=== PATIENT | male | born 1965 | race Caucasian/White ===

== ENCOUNTER 2021-01-04 07:16 | Inpatient (IN) ==
[2021-01-04] MEDS ORDERED: ASPIRIN 325 MG TABLET PO STA (07:33)
[2021-01-04] MEDS ORDERED: NITROGLYCERIN SL 0.4 MG TABLET SL PRN (07:48)
[2021-01-04 07:59] LABS: Basophils % 0.3 % (0.0-0.8); Hematocrit 43.8 VOL% (42.0-52.0); Hemoglobin 14.1 GM/DL (14.0-18.0); Immature Granulocytes Absolute 0.21 #; Lymphocytes # 1.4 10*3/uL (1.4-4.0); Lymphocytes % 13.5 % (21.2-54.2); Mean Corpuscular HGB Conc 32.2 GM/DL (32-36); Mean Corpuscular Volume 96.5 FL (87-102); Monocytes % 6.8 % (1.7-12.7); Neutrophils % 77.4 % (38.7-73.9); Platelet Count 258 T/CUMM (130-400); Red Blood Count 4.54 MC/CUMM (3.8-5.5); White Blood Count 10.5 T/CUMM (4-12)
[2021-01-04 08:11] LABS: Calcium 8.3 MG/DL (8.5-10.1); INR 1.7; Osmolality,Calculated 267.8 MOS/KG (273-304); PT Patient Result 18.6 SECS (10.5-12.0); Partial Thromboplastin Time 32.7 SECS (23.9-33.8); Potassium 4.1 MMOL/L (3.5-5.1)
[2021-01-04] MEDS ORDERED: FUROSEMIDE 40 MG/4 ML VIAL IV STA (10:06)
[2021-01-04] MEDS ORDERED: DEXTROSE 50% 25 GM/50 ML VIAL IV PRN (13:46)
[2021-01-04] MEDS ORDERED: ONDANSETRON 4 MG/2 ML VIAL IV PRN (13:46)
[2021-01-04] MEDS ORDERED: GLUCAGON 1 MG VIAL IM PRN (13:46)
[2021-01-04 14:40] LABS: Albumin 2.5 G/DL (3.4-5.0); Bilirubin,Direct 2.79 MG/DL (0.0-0.20); Bilirubin,Indirect 0.9 MG/DL (0.0-1.0); Bilirubin,Total 3.7 MG/DL (0.2-1.0); Total Protein 7.4 G/DL (6.4-8.2)
[2021-01-04 14:46] LABS: Thyroid Stimulating Hormone 3.03 uIU/ml (0.358-3.74)
[2021-01-04] MEDS ORDERED: cefTRIAXone 1,000 MG in SODIUM CHLORIDE 0.9% 100 ML IV SCH (15:00)
[2021-01-04 15:27] LABS: Barbiturates Screen,Urine Negative (Negative); Benzodiazepines Screen,Urine Negative (Negative); Cannabinoid Screen,Urine Negative (Negative); Opiate Screen,Urine Positive (Negative); Phencyclidine Screen,Urine Negative (Negative)
[2021-01-04] MEDS ORDERED: PNEUMOCOCCAL VACCINE (13 VALENT) 0.5 ML SYRINGE IM ONE (17:17)
[2021-01-04] MEDS: ENOXAPARIN 60 MG/0.6 ML SYRINGE SUBCUT SCH (17:52)
[2021-01-04] MEDS: ALBUTEROL/IPRATROPIUM 3 ML NEB RESP TX SCH (19:05)
[2021-01-04] MEDS: FUROSEMIDE 40 MG/4 ML VIAL IV SCH (20:36)
[2021-01-04] MEDS: MORPHINE 4 MG/1 ML VIAL IV PRN (22:06)
[2021-01-05] MEDS: ALBUTEROL/IPRATROPIUM 3 ML NEB RESP TX SCH ×4 (01:47→20:44)
[2021-01-05] MEDS: MORPHINE 4 MG/1 ML VIAL IV PRN ×4 (02:32→21:09)
[2021-01-05 04:36] LABS: Basophils % 0.2 % (0.0-0.8); Eosinophils % 0.2 % (0.00-10.9); Hematocrit 39.2 VOL% (42.0-52.0); Hemoglobin 13.2 GM/DL (14.0-18.0); Immature Granulocytes % 1.9 %; Immature Granulocytes Absolute 0.23 #; Lymphocytes % 8.1 % (21.2-54.2); Mean Corpuscular HGB Conc 33.7 GM/DL (32-36); Mean Corpuscular Volume 91.2 FL (87-102); Mean Platelet Volume 9.4 FL (9.6-12.0); Monocytes % 6.8 % (1.7-12.7); Neutrophils % 82.8 % (38.7-73.9); Platelet Count 271 T/CUMM (130-400); Red Cell Distribution Width 18.6 % (9.3-17.3); White Blood Count 12.2 T/CUMM (4-12)
[2021-01-05 05:02] LABS: Albumin 1.8 G/DL (3.4-5.0); Bilirubin,Total 2.1 MG/DL (0.2-1.0); Calcium 7.4 MG/DL (8.5-10.1); Osmolality,Calculated 273.2 MOS/KG (273-304); Potassium 2.9 MMOL/L (3.5-5.1); Risk Ratio 5.67; VLDL Cholesterol 13.8 MG/DL
[2021-01-05] MEDS: ENOXAPARIN 60 MG/0.6 ML SYRINGE SUBCUT SCH ×2 (05:34→17:15)
[2021-01-05] MEDS ORDERED: MAGNESIUM SULF RIDER 4 GM/100 ML PREMIX IV PRN (07:26)
[2021-01-05] MEDS ORDERED: MAGNESIUM SULF RIDER 2 GM/50 ML PREMIX IV PRN (07:26)
[2021-01-05] MEDS ORDERED: ENOXAPARIN 40 MG/0.4 ML SYRINGE SUBCUT SCH (09:00)
[2021-01-05] MEDS: LEVOFLOXACIN INJ 750 MG/150 ML PREMIX IV SCH (09:10)
[2021-01-05] MEDS: PANTOPRAZOLE 40 MG TABLET PO SCH (09:10)
[2021-01-05] MEDS: FUROSEMIDE 40 MG/4 ML VIAL IV SCH (09:10)
[2021-01-05] MEDS: POTASSIUM CHLORIDE 20 MEQ TABLET PO PRN ×4 (09:10→16:40)
[2021-01-05] MEDS: LOSARTAN 25 MG TABLET PO SCH (15:55)
[2021-01-05] MEDS: METOPROLOL TARTRATE 25 MG TABLET PO SCH (20:37)
[2021-01-06] MEDS: ALBUTEROL/IPRATROPIUM 3 ML NEB RESP TX SCH ×4 (01:43→18:35)
[2021-01-06] MEDS: ENOXAPARIN 60 MG/0.6 ML SYRINGE SUBCUT SCH ×2 (05:09→17:00)
[2021-01-06 05:17] LABS: Basophils % 0.3 % (0.0-0.8); Eosinophils % 0.3 % (0.00-10.9); Hematocrit 38.6 VOL% (42.0-52.0); Hemoglobin 12.5 GM/DL (14.0-18.0); Immature Granulocytes % 1.3 %; Immature Granulocytes Absolute 0.16 #; Lymphocytes % 8.2 % (21.2-54.2); Mean Corpuscular HGB Conc 32.4 GM/DL (32-36); Mean Platelet Volume 9.5 FL (9.6-12.0); Monocytes % 7.6 % (1.7-12.7); Neutrophils % 82.3 % (38.7-73.9); Platelet Count 271 T/CUMM (130-400); Red Blood Count 4.15 MC/CUMM (3.8-5.5); Red Cell Distribution Width 18.7 % (9.3-17.3)
[2021-01-06 05:39] LABS: Albumin 1.7 G/DL (3.4-5.0); Bilirubin,Total 1.4 MG/DL (0.2-1.0); Calcium 7.6 MG/DL (8.5-10.1); Osmolality,Calculated 267.5 MOS/KG (273-304); Potassium 3.6 MMOL/L (3.5-5.1); Total Protein 5.7 G/DL (6.4-8.2)
[2021-01-06] MEDS: FUROSEMIDE 40 MG TABLET PO SCH (09:35)
[2021-01-06] MEDS: LOSARTAN 25 MG TABLET PO SCH (09:35)
[2021-01-06] MEDS: METOPROLOL TARTRATE 25 MG TABLET PO SCH ×2 (09:35→20:00)
[2021-01-06] MEDS: PANTOPRAZOLE 40 MG TABLET PO SCH (09:36)
[2021-01-06] MEDS: LEVOFLOXACIN INJ 750 MG/150 ML PREMIX IV SCH (09:36)
[2021-01-06] MEDS: MORPHINE 4 MG/1 ML VIAL IV PRN ×2 (10:19→19:36)
[2021-01-06] MEDS: ALUMINUM/MAGNES/SIMETH MAX STR 30 ML UDCUP PO PRN (22:12)
[2021-01-07] MEDS: ALBUTEROL/IPRATROPIUM 3 ML NEB RESP TX SCH ×4 (01:03→19:23)
[2021-01-07] MEDS: ENOXAPARIN 60 MG/0.6 ML SYRINGE SUBCUT SCH ×2 (05:05→18:11)
[2021-01-07] MEDS: LOSARTAN 25 MG TABLET PO SCH (08:43)
[2021-01-07] MEDS: METOPROLOL TARTRATE 50 MG TABLET PO SCH ×2 (08:43→21:46)
[2021-01-07] MEDS: FUROSEMIDE 40 MG TABLET PO SCH (08:44)
[2021-01-07] MEDS: PANTOPRAZOLE 40 MG TABLET PO SCH (08:44)
[2021-01-07] MEDS: LEVOFLOXACIN INJ 750 MG/150 ML PREMIX IV SCH (08:44)
[2021-01-07] MEDS: MORPHINE 4 MG/1 ML VIAL IV PRN (23:11)
[2021-01-08] MEDS: ALBUTEROL/IPRATROPIUM 3 ML NEB RESP TX SCH ×4 (02:08→20:07)
[2021-01-08 04:41] LABS: Basophils % 0.2 % (0.0-0.8); Eosinophils # 0.1 10*3/uL (0.0-0.87); Eosinophils % 0.4 % (0.00-10.9); Hematocrit 35.5 VOL% (42.0-52.0); Hemoglobin 11.4 GM/DL (14.0-18.0); Immature Granulocytes % 1.8 %; Immature Granulocytes Absolute 0.24 #; Lymphocytes # 1.5 10*3/uL (1.4-4.0); Lymphocytes % 10.8 % (21.2-54.2); Mean Corpuscular HGB Conc 32.1 GM/DL (32-36); Mean Corpuscular Volume 95.2 FL (87-102); Mean Platelet Volume 9.4 FL (9.6-12.0); Monocytes % 7.5 % (1.7-12.7); Neutrophils % 79.3 % (38.7-73.9); Platelet Count 307 T/CUMM (130-400); Red Blood Count 3.73 MC/CUMM (3.8-5.5); Red Cell Distribution Width 18.3 % (9.3-17.3); White Blood Count 13.6 T/CUMM (4-12)
[2021-01-08 05:10] LABS: Calcium 7.4 MG/DL (8.5-10.1); Osmolality,Calculated 268.4 MOS/KG (273-304); Potassium 3.3 MMOL/L (3.5-5.1)
[2021-01-08] MEDS: ENOXAPARIN 60 MG/0.6 ML SYRINGE SUBCUT SCH (05:42)
[2021-01-08] MEDS: PANTOPRAZOLE 40 MG TABLET PO SCH (09:13)
[2021-01-08] MEDS: LEVOFLOXACIN INJ 750 MG/150 ML PREMIX IV SCH (09:13)
[2021-01-08] MEDS: METOPROLOL TARTRATE 50 MG TABLET PO SCH ×2 (09:13→21:32)
[2021-01-08] MEDS: LOSARTAN 25 MG TABLET PO SCH (09:13)
[2021-01-08] MEDS: FUROSEMIDE 40 MG TABLET PO SCH (09:13)
[2021-01-08] MEDS: POTASSIUM CHLORIDE 10 MEQ TABLET PO SCH ×2 (09:15→21:32)
[2021-01-08] MEDS: MORPHINE 4 MG/1 ML VIAL IV PRN (09:19)
[2021-01-08 13:11] LABS: INR 1.2; PT Patient Result 12.8 SECS (10.5-12.0)
[2021-01-08] MEDS: ALUMINUM/MAGNES/SIMETH MAX STR 30 ML UDCUP PO PRN (21:32)
[2021-01-09] MEDS: ALBUTEROL/IPRATROPIUM 3 ML NEB RESP TX SCH (00:24)
[2021-01-09 07:36] LABS: Basophils % 0.2 % (0.0-0.8); Eosinophils # 0.1 10*3/uL (0.0-0.87); Eosinophils % 0.4 % (0.00-10.9); Hematocrit 39.2 VOL% (42.0-52.0); Hemoglobin 12.3 GM/DL (14.0-18.0); Immature Granulocytes % 3.4 %; Immature Granulocytes Absolute 0.45 #; Lymphocytes # 1.1 10*3/uL (1.4-4.0); Lymphocytes % 8.6 % (21.2-54.2); Mean Corpuscular HGB Conc 31.4 GM/DL (32-36); Mean Corpuscular Volume 95.6 FL (87-102); Mean Platelet Volume 9.1 FL (9.6-12.0); Monocytes % 8.3 % (1.7-12.7); Neutrophils % 79.1 % (38.7-73.9); Platelet Count 348 T/CUMM (130-400); Red Cell Distribution Width 18.4 % (9.3-17.3); White Blood Count 13.2 T/CUMM (4-12)
[2021-01-09 07:52] VITALS: BP 122/85
[2021-01-09 08:15] LABS: Calcium 8.3 MG/DL (8.5-10.1); Osmolality,Calculated 264.5 MOS/KG (273-304); Potassium 4.4 MMOL/L (3.5-5.1)
[2021-01-09] MEDS ORDERED: LEVOFLOXACIN 750 MG TABLET PO SCH (09:00)
== END 2021-01-09 08:26 | disposition left against medical advice (07) | DRG 205 ==
LOC: EDBD → N.ED 07:16 → SUATTDRO 13:46 → N.EDINP 13:46 → N.TELEN 15:08
PROVIDERS: ADMIT Internal Medicine; ATTEND Internal Medicine

== ENCOUNTER 2021-01-09 13:01 | Inpatient (IN) ==
[2021-01-09] MEDS ORDERED: ALUMINUM/MAGNES/SIMETH MAX STR 30 ML UDCUP PO PRN (14:03)
[2021-01-09] MEDS ORDERED: GLUCAGON 1 MG VIAL IM PRN (14:03)
[2021-01-09] MEDS ORDERED: ONDANSETRON 4 MG/2 ML VIAL IV PRN (14:03)
[2021-01-09] MEDS ORDERED: DEXTROSE 50% 25 GM/50 ML VIAL IV PRN (14:03)
[2021-01-09] MEDS ORDERED: ALBUTEROL/IPRATROPIUM 3 ML NEB RESP TX PRN (14:03)
[2021-01-09] MEDS ORDERED: DOCUSATE SODIUM 100 MG CAPSULE PO PRN (14:03)
[2021-01-09] MEDS ORDERED: traZODone 50 MG TABLET PO PRN (14:13)
[2021-01-09] MEDS ORDERED: FUROSEMIDE 40 MG TABLET PO SCH (16:00)
[2021-01-09] MEDS: ENOXAPARIN 60 MG/0.6 ML SYRINGE SUBCUT SCH (16:51)
[2021-01-09] MEDS: LEVOFLOXACIN 500 MG TABLET PO SCH (16:51)
[2021-01-09] MEDS: METOPROLOL TARTRATE 50 MG TABLET PO SCH (20:33)
[2021-01-09] MEDS ORDERED: carvediloL 3.125 MG TABLET PO SCH (21:00)
[2021-01-10] MEDS: ENOXAPARIN 60 MG/0.6 ML SYRINGE SUBCUT SCH (03:20)
[2021-01-10 07:08] LABS: Basophils # 0.1 10*3/uL (0.0-0.2); Basophils % 0.6 % (0.0-0.8); Eosinophils # 0.1 10*3/uL (0.0-0.87); Hematocrit 38.4 VOL% (42.0-52.0); Hemoglobin 12.5 GM/DL (14.0-18.0); Immature Granulocytes % 4.8 %; Immature Granulocytes Absolute 0.65 #; Lymphocytes # 1.6 10*3/uL (1.4-4.0); Mean Corpuscular HGB Conc 32.6 GM/DL (32-36); Mean Corpuscular Volume 94.6 FL (87-102); Mean Platelet Volume 9.3 FL (9.6-12.0); Monocytes % 10.6 % (1.7-12.7); Platelet Count 343 T/CUMM (130-400); Red Blood Count 4.06 MC/CUMM (3.8-5.5); Red Cell Distribution Width 18.5 % (9.3-17.3); White Blood Count 13.6 T/CUMM (4-12)
[2021-01-10 07:29] LABS: Band Neutrophils 1 % (0-10); Eosinophils 2 % (0-10); Hypochromasia Slight; Lymphocytes 10 % (20-55); Segmented Neutrophils 83 % (50-85); Total Cells Counted 100
[2021-01-10 07:30] LABS: Microcytosis 1+; Platelet Estimate Normal
[2021-01-10 07:39] LABS: Calcium 8.2 MG/DL (8.5-10.1); Osmolality,Calculated 263.5 MOS/KG (273-304); Potassium 4.1 MMOL/L (3.5-5.1)
[2021-01-10] MEDS ORDERED: FUROSEMIDE 40 MG TABLET PO SCH (09:00)
[2021-01-10] MEDS: METOPROLOL TARTRATE 50 MG TABLET PO SCH ×2 (09:27→20:25)
[2021-01-10] MEDS: LOSARTAN 25 MG TABLET PO SCH (09:28)
[2021-01-10] MEDS: FUROSEMIDE 40 MG/4 ML VIAL IV SCH ×2 (09:29→16:15)
[2021-01-10] MEDS: LEVOFLOXACIN 500 MG TABLET PO SCH (16:15)
[2021-01-10 19:44] LABS: Barbiturates Screen,Urine Negative (Negative); Benzodiazepines Screen,Urine Negative (Negative); Cannabinoid Screen,Urine Negative (Negative); Opiate Screen,Urine Positive (Negative); Phencyclidine Screen,Urine Negative (Negative)
[2021-01-11 04:56] LABS: Basophils # 0.1 10*3/uL (0.0-0.2); Basophils % 0.4 % (0.0-0.8); Eosinophils # 0.1 10*3/uL (0.0-0.87); Eosinophils % 0.6 % (0.00-10.9); Hematocrit 34.4 VOL% (42.0-52.0); Immature Granulocytes % 5.8 %; Immature Granulocytes Absolute 0.71 #; Lymphocytes # 1.4 10*3/uL (1.4-4.0); Lymphocytes % 11.4 % (21.2-54.2); Mean Corpuscular Volume 93.2 FL (87-102); Mean Platelet Volume 9.2 FL (9.6-12.0); Monocytes % 8.6 % (1.7-12.7); Neutrophils % 73.2 % (38.7-73.9); Platelet Count 329 T/CUMM (130-400); Red Blood Count 3.69 MC/CUMM (3.8-5.5); Red Cell Distribution Width 17.8 % (9.3-17.3); White Blood Count 12.2 T/CUMM (4-12)
[2021-01-11 05:32] LABS: Calcium 7.8 MG/DL (8.5-10.1); Osmolality,Calculated 268.2 MOS/KG (273-304); Potassium 3.8 MMOL/L (3.5-5.1)
[2021-01-11 05:48] LABS: Lymphocytes 14 % (20-55); Myelocytes 1 %; Segmented Neutrophils 78 % (50-85); Total Cells Counted 100
[2021-01-11 05:49] LABS: Atypical Lymphocytes Few; Hypochromasia 1+; Microcytosis 1+
[2021-01-11 05:50] LABS: Platelet Estimate Normal
[2021-01-11] MEDS: LOSARTAN 25 MG TABLET PO SCH (10:06)
[2021-01-11] MEDS: METOPROLOL TARTRATE 50 MG TABLET PO SCH ×2 (10:06→21:40)
[2021-01-11] MEDS: MAGNESIUM OXIDE 400 MG TABLET PO SCH ×2 (10:06→21:40)
[2021-01-11] MEDS: FUROSEMIDE 40 MG/4 ML VIAL IV SCH ×2 (10:09→16:42)
[2021-01-11] MEDS: ENOXAPARIN 60 MG/0.6 ML SYRINGE SUBCUT SCH (16:41)
[2021-01-11] MEDS: LEVOFLOXACIN 500 MG TABLET PO SCH (16:41)
[2021-01-11 17:58] LABS: Lymphocytes,Pleural Fluid 32 %; Monocytes,Pleural Fluid 3 %; Neutrophils,Pleural Fluid 65 %
[2021-01-11 17:59] LABS: RBC,Pleural Fluid 388 T/CUMM
[2021-01-12] MEDS: ENOXAPARIN 60 MG/0.6 ML SYRINGE SUBCUT SCH ×2 (04:53→16:34)
[2021-01-12 05:06] LABS: Basophils # 0.1 10*3/uL (0.0-0.2); Basophils % 0.9 % (0.0-0.8); Eosinophils # 0.1 10*3/uL (0.0-0.87); Eosinophils % 0.7 % (0.00-10.9); Hematocrit 34.6 VOL% (42.0-52.0); Hemoglobin 11.1 GM/DL (14.0-18.0); Immature Granulocytes % 6.8 %; Lymphocytes # 1.3 10*3/uL (1.4-4.0); Mean Corpuscular HGB Conc 32.1 GM/DL (32-36); Mean Corpuscular Volume 92.8 FL (87-102); Mean Platelet Volume 9.2 FL (9.6-12.0); Monocytes % 9.1 % (1.7-12.7); Neutrophils % 71.5 % (38.7-73.9); Platelet Count 338 T/CUMM (130-400); Red Blood Count 3.73 MC/CUMM (3.8-5.5); Red Cell Distribution Width 17.9 % (9.3-17.3); White Blood Count 11.8 T/CUMM (4-12)
[2021-01-12 05:47] LABS: Potassium 3.9 MMOL/L (3.5-5.1)
[2021-01-12 06:41] LABS: Anisocytosis 1+; Band Neutrophils 6 % (0-10); Lymphocytes 14 % (20-55); Platelet Estimate Normal; Segmented Neutrophils 71 % (50-85); Total Cells Counted 100
[2021-01-12 06:42] LABS: Macrocytosis 1+; Ovalocytes Few
[2021-01-12] MEDS: MAGNESIUM OXIDE 400 MG TABLET PO SCH ×2 (09:21→20:46)
[2021-01-12] MEDS: LOSARTAN 25 MG TABLET PO SCH (09:22)
[2021-01-12] MEDS: METOPROLOL TARTRATE 50 MG TABLET PO SCH ×2 (09:22→20:46)
[2021-01-12] MEDS: FUROSEMIDE 40 MG/4 ML VIAL IV SCH ×2 (09:22→16:34)
[2021-01-12] MEDS: LEVOFLOXACIN 500 MG TABLET PO SCH (16:34)
[2021-01-13] MEDS: ENOXAPARIN 60 MG/0.6 ML SYRINGE SUBCUT SCH ×2 (05:13→16:26)
[2021-01-13 05:43] LABS: Basophils # 0.1 10*3/uL (0.0-0.2); Basophils % 0.9 % (0.0-0.8); Eosinophils # 0.1 10*3/uL (0.0-0.87); Eosinophils % 0.8 % (0.00-10.9); Hematocrit 36.1 VOL% (42.0-52.0); Hemoglobin 11.6 GM/DL (14.0-18.0); Immature Granulocytes % 7.1 %; Immature Granulocytes Absolute 0.91 #; Lymphocytes # 1.9 10*3/uL (1.4-4.0); Mean Corpuscular HGB Conc 32.1 GM/DL (32-36); Mean Corpuscular Volume 93.3 FL (87-102); Neutrophils % 67.2 % (38.7-73.9); Platelet Count 392 T/CUMM (130-400); Red Blood Count 3.87 MC/CUMM (3.8-5.5); Red Cell Distribution Width 17.7 % (9.3-17.3); White Blood Count 12.7 T/CUMM (4-12)
[2021-01-13 06:00] LABS: Osmolality,Calculated 270.1 MOS/KG (273-304); Potassium 3.7 MMOL/L (3.5-5.1)
[2021-01-13 06:06] LABS: Band Neutrophils 3 % (0-10); Lymphocytes 13 % (20-55); Platelet Estimate Adequate; Segmented Neutrophils 80 % (50-85); Total Cells Counted 100
[2021-01-13 06:07] LABS: Hypochromasia 1+; Microcytosis 1+
[2021-01-13] MEDS: MAGNESIUM OXIDE 400 MG TABLET PO SCH ×2 (09:43→20:53)
[2021-01-13] MEDS: LOSARTAN 25 MG TABLET PO SCH (09:44)
[2021-01-13] MEDS: METOPROLOL TARTRATE 50 MG TABLET PO SCH ×2 (09:44→20:52)
[2021-01-13] MEDS: FUROSEMIDE 40 MG/4 ML VIAL IV SCH ×2 (09:44→15:02)
[2021-01-13] MEDS: guaiFENesin/DM ER 600-30 MG TABLET PO PRN (15:02)
[2021-01-14] MEDS: ENOXAPARIN 60 MG/0.6 ML SYRINGE SUBCUT SCH (05:01)
[2021-01-14 06:34] LABS: Basophils # 0.2 10*3/uL (0.0-0.2); Basophils % 1.2 % (0.0-0.8); Eosinophils # 0.1 10*3/uL (0.0-0.87); Eosinophils % 0.9 % (0.00-10.9); Hematocrit 34.9 VOL% (42.0-52.0); Hemoglobin 11.6 GM/DL (14.0-18.0); Immature Granulocytes % 6.1 %; Immature Granulocytes Absolute 0.77 #; Lymphocytes # 2.1 10*3/uL (1.4-4.0); Lymphocytes % 16.4 % (21.2-54.2); Mean Corpuscular HGB Conc 33.2 GM/DL (32-36); Mean Corpuscular Volume 91.6 FL (87-102); Mean Platelet Volume 9.2 FL (9.6-12.0); Monocytes % 8.7 % (1.7-12.7); Neutrophils % 66.7 % (38.7-73.9); Platelet Count 415 T/CUMM (130-400); Red Blood Count 3.81 MC/CUMM (3.8-5.5); Red Cell Distribution Width 17.7 % (9.3-17.3); White Blood Count 12.7 T/CUMM (4-12)
[2021-01-14 07:04] LABS: Calcium 7.8 MG/DL (8.5-10.1); Osmolality,Calculated 271.1 MOS/KG (273-304); Potassium 3.7 MMOL/L (3.5-5.1)
[2021-01-14 07:09] LABS: Anisocytosis 1+; Band Neutrophils 13 % (0-10); Lymphocytes 17 % (20-55); Macrocytosis 1+; Myelocytes 1 %; Platelet Estimate Normal; Segmented Neutrophils 60 % (50-85); Smudge Cells Few; Total Cells Counted 100
[2021-01-14] MEDS: FUROSEMIDE 40 MG/4 ML VIAL IV SCH ×2 (08:55→16:27)
[2021-01-14] MEDS: MAGNESIUM OXIDE 400 MG TABLET PO SCH ×2 (08:55→20:22)
[2021-01-14] MEDS: LOSARTAN 25 MG TABLET PO SCH (08:55)
[2021-01-14] MEDS: METOPROLOL TARTRATE 50 MG TABLET PO SCH ×2 (08:55→20:22)
[2021-01-14] MEDS: RIVAROXABAN 15 MG TABLET PO SCH (16:27)
[2021-01-14] MEDS: guaiFENesin/DM ER 600-30 MG TABLET PO PRN (16:31)
[2021-01-15] MEDS: LOSARTAN 25 MG TABLET PO SCH (09:09)
[2021-01-15] MEDS: FUROSEMIDE 40 MG/4 ML VIAL IV SCH ×2 (09:09→15:21)
[2021-01-15] MEDS: METOPROLOL TARTRATE 50 MG TABLET PO SCH (09:09)
[2021-01-15] MEDS: MAGNESIUM OXIDE 400 MG TABLET PO SCH (09:09)
[2021-01-15] MEDS: RIVAROXABAN 15 MG TABLET PO SCH (09:47)
[2021-01-15] MEDS ORDERED: TUBERCULIN SKIN TEST 0.1 ML SYRINGE INTRADERM ONE (11:00)
[2021-01-15 12:17] VITALS: BP 104/77
== END 2021-01-15 15:48 | DRG 194 ==
LOC: EDUNIT# → EDBD → N.ED 13:01 → N.EDINP 14:03 → SUATTDRO 14:03 → N.TELES 14:37
PROVIDERS: ADMIT Internal Medicine; ATTEND Internal Medicine

== ENCOUNTER 2021-01-18 10:14 | Inpatient (IN) ==
[2021-01-18 11:35] LABS: Basophils # 0.1 10*3/uL (0.0-0.2); Eosinophils % 0.1 % (0.00-10.9); Immature Granulocytes % 5.2 %; Immature Granulocytes Absolute 0.71 #; Lymphocytes % 14.3 % (21.2-54.2); Mean Corpuscular HGB Conc 31.6 GM/DL (32-36); Mean Corpuscular Volume 93.4 FL (87-102); Mean Platelet Volume 8.7 FL (9.6-12.0); Monocytes % 8.1 % (1.7-12.7); Neutrophils % 71.3 % (38.7-73.9); Platelet Count 548 T/CUMM (130-400); Red Blood Count 4.07 MC/CUMM (3.8-5.5); Red Cell Distribution Width 17.5 % (9.3-17.3); White Blood Count 13.7 T/CUMM (4-12)
[2021-01-18] MEDS ORDERED: FUROSEMIDE 100 MG/10 ML VIAL IV STA (11:47)
[2021-01-18] MEDS ORDERED: FUROSEMIDE 40 MG/4 ML VIAL ONE (11:55)
[2021-01-18 11:58] LABS: Albumin 2.3 G/DL (3.4-5.0); Bilirubin,Total 1.4 MG/DL (0.20-1.00); Calcium 8.3 MG/DL (8.5-10.1); Osmolality,Calculated 272.8 MOS/KG (273-304); Potassium 4.4 MMOL/L (3.5-5.1); Total Protein 7.8 G/DL (6.4-8.2)
[2021-01-18 12:12] LABS: Lymphocytes 13 % (20-55); Reactive Lymphocytes 2+; Segmented Neutrophils 83 % (50-85); Total Cells Counted 100
[2021-01-18 12:24] LABS: INR 1.1; PT Patient Result 12.7 SECS (10.5-12.0)
[2021-01-18 12:37] LABS: Barbiturates Screen,Urine Negative (Negative); Benzodiazepines Screen,Urine Negative (Negative); Cannabinoid Screen,Urine Negative (Negative); Opiate Screen,Urine Negative (Negative); Phencyclidine Screen,Urine Negative (Negative)
[2021-01-18] MEDS ORDERED: traZODone 50 MG TABLET PO PRN (17:21)
[2021-01-18] MEDS ORDERED: ALUMINUM/MAGNES/SIMETH MAX STR 30 ML UDCUP PO PRN (18:06)
[2021-01-18] MEDS ORDERED: MAGNESIUM HYDROXIDE SUSP 30 ML UDCUP PO PRN (18:06)
[2021-01-18] MEDS ORDERED: ONDANSETRON 4 MG/2 ML VIAL IV PRN (18:06)
[2021-01-18] MEDS: FUROSEMIDE 40 MG/4 ML VIAL IV SCH (20:29)
[2021-01-18] MEDS: ACETAMINOPHEN 325 MG TABLET PO PRN (20:29)
[2021-01-18] MEDS: MAGNESIUM OXIDE 400 MG TABLET PO SCH (20:29)
[2021-01-18] MEDS: METOPROLOL TARTRATE 50 MG TABLET PO SCH (20:30)
[2021-01-18] MEDS ORDERED: MORPHINE 2 MG/1 ML SYRINGE IV ONE (22:07)
[2021-01-19 06:07] LABS: Bilirubin,Total 0.6 MG/DL (0.20-1.00); Potassium 3.2 MMOL/L (3.5-5.1); Total Protein 7.5 G/DL (6.4-8.2)
[2021-01-19] MEDS: PANTOPRAZOLE 40 MG TABLET PO SCH (09:45)
[2021-01-19] MEDS: POTASSIUM CHLORIDE 20 MEQ TABLET PO SCH (09:46)
[2021-01-19] MEDS: RIVAROXABAN 20 MG TABLET PO SCH (09:46)
[2021-01-19] MEDS: MAGNESIUM OXIDE 400 MG TABLET PO SCH (09:46)
[2021-01-19] MEDS: METOPROLOL TARTRATE 50 MG TABLET PO SCH (09:46)
[2021-01-19] MEDS: LOSARTAN 25 MG TABLET PO SCH (09:46)
[2021-01-19] MEDS: FUROSEMIDE 40 MG/4 ML VIAL IV SCH (09:51)
[2021-01-19] MEDS ORDERED: ALBUTEROL/IPRATROPIUM 3 ML NEB RESP TX PRN (11:42)
[2021-01-19] MEDS ORDERED: POTASSIUM CHLORIDE 10 MEQ TABLET PO ONE (12:32)
[2021-01-19] MEDS: ALBUTEROL/IPRATROPIUM 3 ML NEB RESP TX SCH ×3 (14:55→23:00)
[2021-01-20] MEDS: METOPROLOL TARTRATE 50 MG TABLET PO SCH ×3 (01:11→21:48)
[2021-01-20] MEDS: FUROSEMIDE 40 MG/4 ML VIAL IV SCH ×3 (01:11→21:49)
[2021-01-20] MEDS: MAGNESIUM OXIDE 400 MG TABLET PO SCH ×3 (01:11→21:48)
[2021-01-20] MEDS: ALBUTEROL/IPRATROPIUM 3 ML NEB RESP TX SCH ×6 (03:00→23:00)
[2021-01-20 03:54] LABS: Basophils # 0.1 10*3/uL (0.0-0.2); Basophils % 0.5 % (0.0-0.8); Eosinophils % 0.1 % (0.00-10.9); Hematocrit 35.1 VOL% (42.0-52.0); Hemoglobin 11.3 GM/DL (14.0-18.0); Immature Granulocytes % 5.7 %; Immature Granulocytes Absolute 1.09 #; Lymphocytes # 2.2 10*3/uL (1.4-4.0); Lymphocytes % 11.8 % (21.2-54.2); Mean Corpuscular HGB Conc 32.2 GM/DL (32-36); Mean Corpuscular Volume 92.1 FL (87-102); Neutrophils % 75.9 % (38.7-73.9); Platelet Count 500 T/CUMM (130-400); Red Blood Count 3.81 MC/CUMM (3.8-5.5); Red Cell Distribution Width 17.5 % (9.3-17.3)
[2021-01-20 04:15] LABS: Lymphocytes 6 % (20-55); Platelet Estimate Increased; Segmented Neutrophils 88 % (50-85); Total Cells Counted 100
[2021-01-20] MEDS ORDERED: DIPHENOXYLATE/ATROPINE 2.5-0.025 MG TABLET PO PRN (09:14)
[2021-01-20] MEDS: RIVAROXABAN 20 MG TABLET PO SCH (10:38)
[2021-01-20] MEDS: LOSARTAN 25 MG TABLET PO SCH (10:38)
[2021-01-20] MEDS: PANTOPRAZOLE 40 MG TABLET PO SCH (10:38)
[2021-01-20] MEDS: LEVOTHYROXINE 88 MCG TABLET PO SCH (10:40)
[2021-01-20] MEDS: POTASSIUM CHLORIDE 20 MEQ TABLET PO SCH (10:41)
[2021-01-20] MEDS: POTASSIUM CHLORIDE 20 MEQ TABLET PO PRN ×3 (13:02→17:23)
[2021-01-21] MEDS: ALBUTEROL/IPRATROPIUM 3 ML NEB RESP TX SCH ×5 (03:00→19:43)
[2021-01-21 04:28] LABS: Basophils # 0.1 10*3/uL (0.0-0.2); Basophils % 0.4 % (0.0-0.8); Eosinophils # 0.2 10*3/uL (0.0-0.87); Eosinophils % 1.3 % (0.00-10.9); Hematocrit 38.4 VOL% (42.0-52.0); Hemoglobin 12.5 GM/DL (14.0-18.0); Immature Granulocytes % 6.3 %; Immature Granulocytes Absolute 0.89 #; Lymphocytes # 2.1 10*3/uL (1.4-4.0); Lymphocytes % 14.5 % (21.2-54.2); Mean Corpuscular HGB Conc 32.6 GM/DL (32-36); Mean Platelet Volume 9.1 FL (9.6-12.0); Monocytes % 7.1 % (1.7-12.7); Neutrophils % 70.4 % (38.7-73.9); Platelet Count 567 T/CUMM (130-400); Red Blood Count 4.22 MC/CUMM (3.8-5.5); Red Cell Distribution Width 17.7 % (9.3-17.3); White Blood Count 14.1 T/CUMM (4-12)
[2021-01-21 04:57] LABS: Band Neutrophils 1 % (0-10); Lymphocytes 6 % (20-55); Myelocytes 1 %; Segmented Neutrophils 87 % (50-85); Total Cells Counted 100
[2021-01-21 04:58] LABS: Hypochromasia Slight; Microcytosis 1+; Polychromasia Slight
[2021-01-21 04:59] LABS: Platelet Estimate Increased
[2021-01-21 05:10] LABS: Calcium 8.4 MG/DL (8.5-10.1); Osmolality,Calculated 279.1 MOS/KG (273-304); Potassium 4.4 MMOL/L (3.5-5.1)
[2021-01-21] MEDS: LEVOTHYROXINE 88 MCG TABLET PO SCH (05:43)
[2021-01-21] MEDS: LOSARTAN 25 MG TABLET PO SCH (08:21)
[2021-01-21] MEDS: RIVAROXABAN 20 MG TABLET PO SCH ×2 (08:22→08:59)
[2021-01-21 08:58] LABS: Free T4 (Free Thyroxine) 1.44 NG/DL (0.76-1.46)
[2021-01-21] MEDS: POTASSIUM CHLORIDE 20 MEQ TABLET PO SCH (08:58)
[2021-01-21] MEDS: METOPROLOL TARTRATE 50 MG TABLET PO SCH (08:59)
[2021-01-21] MEDS: FUROSEMIDE 40 MG/4 ML VIAL IV SCH ×2 (08:59→21:27)
[2021-01-21] MEDS: PANTOPRAZOLE 40 MG TABLET PO SCH (08:59)
[2021-01-21] MEDS: MAGNESIUM OXIDE 400 MG TABLET PO SCH ×2 (08:59→21:26)
[2021-01-21] MEDS: cefTRIAXone 1,000 MG in SODIUM CHLORIDE 0.9% 100 ML IV SCH (11:49)
[2021-01-21] MEDS: AZITHROMYCIN INJ 500 MG in SODIUM CHLORIDE 0.9% 250 ML IV SCH (12:44)
[2021-01-21] MEDS ORDERED: LORazepam 2 MG/1 ML VIAL IV ONE (13:03)
[2021-01-21] MEDS ORDERED: ETOMIDATE 20 MG/10 ML VIAL IV ONE ×3 (13:23→13:53)
[2021-01-21] MEDS ORDERED: SUCCINYLCHOLINE 200 MG/10 ML VIAL ONE ×2 (13:24→13:44)
[2021-01-21 13:25] LABS: ABG Base Excess -18.1 MMOL/L (-2.5-2.5); ABG HCO3 11.2 MMOL/L (20-26); ABG Oxygen Saturation 99.1 % (95-100); ABG PH 7.238 (7.35-7.45); ABG TCO2 7.3 MMOL/L (23-27)
[2021-01-21] MEDS ORDERED: SODIUM BICARBONATE 50 MEQ/50 ML VIAL IV ONE (13:46)
[2021-01-21] MEDS ORDERED: ALBUTEROL 2.5 MG/3 ML NEB RESP TX PRN (13:47)
[2021-01-21 13:48] LABS: Basophils # 0.1 10*3/uL (0.0-0.2); Basophils % 0.4 % (0.0-0.8); Eosinophils # 0.2 10*3/uL (0.0-0.87); Eosinophils % 1.3 % (0.00-10.9); Hematocrit 40.8 VOL% (42.0-52.0); Hemoglobin 12.5 GM/DL (14.0-18.0); Immature Granulocytes % 8.2 %; Immature Granulocytes Absolute 1.43 #; Lymphocytes # 4.6 10*3/uL (1.4-4.0); Lymphocytes % 26.3 % (21.2-54.2); Mean Corpuscular HGB Conc 30.6 GM/DL (32-36); Mean Platelet Volume 9.6 FL (9.6-12.0); Monocytes % 7.3 % (1.7-12.7); NRBC # 0.02 10*3/uL; Neutrophils % 56.5 % (38.7-73.9); Platelet Count 533 T/CUMM (130-400); Red Blood Count 4.25 MC/CUMM (3.8-5.5); Red Cell Distribution Width 18.2 % (9.3-17.3); White Blood Count 17.4 T/CUMM (4-12)
[2021-01-21] MEDS ORDERED: SUCCINYLCHOLINE 200 MG/10 ML VIAL IV ONE ×2 (13:53)
[2021-01-21 14:12] LABS: Alanine Aminotransferase 112 U/L (16-61); Albumin 2.4 G/DL (3.4-5.0); Alkaline Phosphatase 115 U/L (45-117); Aspartate Amino Transferase 182 U/L (0-37); Blood Urea Nitrogen 38 MG/DL (7-18); Calcium 8.5 MG/DL (8.5-10.1); Carbon Dioxide 16 MMOL/L (21-32); Estimated Glom Filtration Rate 66 ML/MIN; Glucose 133 MG/DL (74-106); Osmolality,Calculated 280.1 MOS/KG (273-304); Potassium 4.6 MMOL/L (3.5-5.1); Sodium 135 MMOL/L (136-145); Total Protein 8.4 G/DL (6.4-8.2)
[2021-01-21] MEDS: MIDAZOLAM 100 MG in SODIUM CHLORIDE 0.9% 80 ML IV PRN (14:20)
[2021-01-21] MEDS: fentaNYL INJ 1,250 MCG in SODIUM CHLORIDE 0.9% 225 ML IV PRN ×2 (14:20→23:47)
[2021-01-21 14:31] LABS: Anisocytosis 1+; Band Neutrophils 3 % (0-10); Eosinophils 2 % (0-10); Lymphocytes 23 % (20-55); Macrocytosis 1+; Metamyelocytes 2 %; Microcytosis Slight; Myelocytes 1 %; Platelet Estimate Increased; Polychromasia 1+; Segmented Neutrophils 60 % (50-85); Total Cells Counted 100
[2021-01-21] MEDS: CLINDAMYCIN INJ 600 MG/50 ML PREMIX IV SCH ×2 (16:39→21:28)
[2021-01-21] MEDS: PANTOPRAZOLE 40 MG VIAL IV SCH (16:41)
[2021-01-21 18:13] LABS: Bilirubin,Urine Negative (Negative); Blood, Urine Negative (Negative); Glucose,Urine (UA) Negative (Negative); Hyaline Casts,Urine 18 /LPF (0-3); Ketones,Urine Negative (Negative); Mucus,Urine Occasional /LPF (Occasional); Nitrite,Urine Negative (Negative); Protein,Urine 100 MG/DL; RBC,Urine 2 /HPF (0-4); Squamous Epithelial Cell,Urine Occasional /HPF (0-10); Urine Appearance CLEAR (Clear); Urine Color Yellow (Yellow); Urine Specific Gravity 1.016 (1.001-1.035)
[2021-01-21 18:22] LABS: Barbiturates Screen,Urine Negative (Negative); Benzodiazepines Screen,Urine Positive (Negative); Cannabinoid Screen,Urine Negative (Negative); Opiate Screen,Urine Positive (Negative); Phencyclidine Screen,Urine Negative (Negative)
[2021-01-22] MEDS: ALBUTEROL/IPRATROPIUM 3 ML NEB RESP TX SCH ×6 (00:54→19:15)
[2021-01-22 04:38] LABS: Allen Test Positive; Pt O2 Delivery Device Ventilator
[2021-01-22 04:39] LABS: ABG Base Excess 2.5 MMOL/L (-2.5-2.5); ABG HCO3 26.6 MMOL/L (20-26); ABG PH 7.398 (7.35-7.45); ABG TCO2 24.8 MMOL/L (23-27)
[2021-01-22 05:03] LABS: Basophils # 0.1 10*3/uL (0.0-0.2); Basophils % 0.8 % (0.0-0.8); Eosinophils # 0.1 10*3/uL (0.0-0.87); Eosinophils % 0.8 % (0.00-10.9); Hematocrit 35.3 VOL% (42.0-52.0); Hemoglobin 11.2 GM/DL (14.0-18.0); Immature Granulocytes % 3.8 %; Immature Granulocytes Absolute 0.65 #; Lymphocytes # 1.9 10*3/uL (1.4-4.0); Lymphocytes % 11.3 % (21.2-54.2); Mean Corpuscular HGB Conc 31.7 GM/DL (32-36); Mean Corpuscular Volume 92.7 FL (87-102); Mean Platelet Volume 9.2 FL (9.6-12.0); Monocytes % 4.5 % (1.7-12.7); NRBC # 0.05 10*3/uL; Neutrophils % 78.8 % (38.7-73.9); Platelet Count 473 T/CUMM (130-400); Red Blood Count 3.81 MC/CUMM (3.8-5.5); Red Cell Distribution Width 17.9 % (9.3-17.3); White Blood Count 17.1 T/CUMM (4-12)
[2021-01-22 05:27] LABS: Bilirubin,Total 0.7 MG/DL (0.20-1.00); Calcium 7.8 MG/DL (8.5-10.1); Osmolality,Calculated 288.3 MOS/KG (273-304); Total Protein 6.9 G/DL (6.4-8.2)
[2021-01-22 05:35] LABS: Hypochromasia 1+; Lymphocytes 7 % (20-55); Microcytosis 1+; Platelet Estimate Adequate; Segmented Neutrophils 88 % (50-85); Total Cells Counted 100
[2021-01-22] MEDS: CLINDAMYCIN INJ 600 MG/50 ML PREMIX IV SCH ×3 (05:54→21:01)
[2021-01-22] MEDS: LEVOTHYROXINE 88 MCG TABLET PO SCH (05:54)
[2021-01-22] MEDS ORDERED: SODIUM CHLORIDE 0.9% 250 ML IV ONE (07:34)
[2021-01-22] MEDS ORDERED: NOREPINEPHRINE 8 MG in SODIUM CHLORIDE 0.9% 242 ML IV PRN (07:34)
[2021-01-22] MEDS ORDERED: DOBUTamine 500 MG/250 ML PREMIX IV PRN (07:44)
[2021-01-22] MEDS: MIDAZOLAM 100 MG in SODIUM CHLORIDE 0.9% 80 ML IV PRN (08:03)
[2021-01-22] MEDS: fentaNYL INJ 1,250 MCG in SODIUM CHLORIDE 0.9% 225 ML IV PRN (08:35)
[2021-01-22] MEDS: RIVAROXABAN 20 MG TABLET PO SCH (08:44)
[2021-01-22] MEDS: MAGNESIUM OXIDE 400 MG TABLET PO SCH ×2 (08:44→21:01)
[2021-01-22] MEDS ORDERED: ALBUMIN 25% 25 GM/100 ML VIAL IV ONE (09:46)
[2021-01-22] MEDS: AZITHROMYCIN INJ 500 MG in SODIUM CHLORIDE 0.9% 250 ML IV SCH (11:05)
[2021-01-22] MEDS: cefTRIAXone 1,000 MG in SODIUM CHLORIDE 0.9% 100 ML IV SCH (11:05)
[2021-01-22] MEDS: NOREPINEPHRINE 8 MG in SODIUM CHLORIDE 0.9% 242 ML IV PRN (13:11)
[2021-01-22] MEDS: PANTOPRAZOLE 40 MG VIAL IV SCH (14:59)
[2021-01-23] MEDS: ALBUTEROL/IPRATROPIUM 3 ML NEB RESP TX SCH ×6 (00:09→19:14)
[2021-01-23 03:12] LABS: Basophils # 0.1 10*3/uL (0.0-0.2); Basophils % 0.6 % (0.0-0.8); Eosinophils # 0.2 10*3/uL (0.0-0.87); Eosinophils % 1.7 % (0.00-10.9); Hematocrit 30.9 VOL% (42.0-52.0); Hemoglobin 9.5 GM/DL (14.0-18.0); Immature Granulocytes % 4.9 %; Immature Granulocytes Absolute 0.51 #; Lymphocytes # 1.2 10*3/uL (1.4-4.0); Lymphocytes % 11.1 % (21.2-54.2); Mean Corpuscular HGB Conc 30.7 GM/DL (32-36); Mean Corpuscular Volume 95.7 FL (87-102); Monocytes % 6.8 % (1.7-12.7); Neutrophils % 74.9 % (38.7-73.9); Platelet Count 394 T/CUMM (130-400); Red Blood Count 3.23 MC/CUMM (3.8-5.5); Red Cell Distribution Width 18.3 % (9.3-17.3); White Blood Count 10.4 T/CUMM (4-12)
[2021-01-23 03:13] LABS: ABG Base Excess 2.1 MMOL/L (-2.5-2.5); ABG HCO3 26.3 MMOL/L (20-26); ABG PCO2 40.1 MM HG (35-48); ABG PH 7.429 (7.35-7.45); ABG TCO2 23.3 MMOL/L (23-27)
[2021-01-23 03:34] LABS: Calcium 7.8 MG/DL (8.5-10.1); Osmolality,Calculated 288.1 MOS/KG (273-304); Potassium 4.1 MMOL/L (3.5-5.1)
[2021-01-23 03:39] LABS: Hypochromasia 1+; Lymphocytes 8 % (20-55); Microcytosis 1+; Platelet Estimate Adequate; Segmented Neutrophils 89 % (50-85); Total Cells Counted 100
[2021-01-23] MEDS: MIDAZOLAM 100 MG in SODIUM CHLORIDE 0.9% 80 ML IV PRN (03:57)
[2021-01-23] MEDS: CLINDAMYCIN INJ 600 MG/50 ML PREMIX IV SCH ×3 (05:44→21:33)
[2021-01-23] MEDS: LEVOTHYROXINE 88 MCG TABLET PO SCH (05:44)
[2021-01-23] MEDS: RIVAROXABAN 20 MG TABLET PO SCH (08:42)
[2021-01-23] MEDS: MAGNESIUM OXIDE 400 MG TABLET PO SCH ×2 (08:42→21:33)
[2021-01-23] MEDS: cefTRIAXone 1,000 MG in SODIUM CHLORIDE 0.9% 100 ML IV SCH (13:17)
[2021-01-23] MEDS: PANTOPRAZOLE 40 MG VIAL IV SCH (13:18)
[2021-01-23] MEDS: AZITHROMYCIN INJ 500 MG in SODIUM CHLORIDE 0.9% 250 ML IV SCH (13:18)
[2021-01-23 14:12] LABS: ABG Base Excess -4.5 MMOL/L (-2.5-2.5); ABG HCO3 20.7 MMOL/L (20-26); ABG PCO2 27.6 MM HG (35-48); ABG PH 7.437 (7.35-7.45); ABG TCO2 16.7 MMOL/L (23-27)
[2021-01-23] MEDS: NOREPINEPHRINE 8 MG in SODIUM CHLORIDE 0.9% 242 ML IV PRN (14:30)
[2021-01-23] MEDS ORDERED: methylPREDNISolone SOD SUC 125 MG/2 ML VIAL IV ONE (16:33)
[2021-01-23] MEDS ORDERED: diphenhydrAMINE 50 MG/1 ML VIAL IV ONE (16:33)
[2021-01-24] MEDS: ALBUTEROL/IPRATROPIUM 3 ML NEB RESP TX SCH ×5 (00:06→18:15)
[2021-01-24] MEDS: MIDAZOLAM 100 MG in SODIUM CHLORIDE 0.9% 80 ML IV PRN ×2 (00:55→22:03)
[2021-01-24] MEDS: fentaNYL INJ 1,250 MCG in SODIUM CHLORIDE 0.9% 225 ML IV PRN ×2 (02:18→16:00)
[2021-01-24 04:22] LABS: Allen Test Positive; Pt O2 Delivery Device Ventilator
[2021-01-24 04:23] LABS: ABG Base Excess 1.8 MMOL/L (-2.5-2.5); ABG Oxygen Saturation 99.7 % (95-100); ABG PCO2 34.2 MM HG (35-48); ABG PH 7.474 (7.35-7.45); ABG TCO2 22.8 MMOL/L (23-27)
[2021-01-24 05:01] LABS: Basophils % 0.4 % (0.0-0.8); Hematocrit 30.4 VOL% (42.0-52.0); Hemoglobin 9.7 GM/DL (14.0-18.0); Immature Granulocytes % 4.1 %; Immature Granulocytes Absolute 0.38 #; Lymphocytes # 0.8 10*3/uL (1.4-4.0); Mean Corpuscular HGB Conc 31.9 GM/DL (32-36); Mean Corpuscular Volume 92.7 FL (87-102); Mean Platelet Volume 10.1 FL (9.6-12.0); Monocytes % 1.7 % (1.7-12.7); Neutrophils % 84.8 % (38.7-73.9); Platelet Count 286 T/CUMM (130-400); Red Blood Count 3.28 MC/CUMM (3.8-5.5); Red Cell Distribution Width 18.1 % (9.3-17.3); White Blood Count 9.3 T/CUMM (4-12)
[2021-01-24 05:30] LABS: Calcium 7.7 MG/DL (8.5-10.1); Potassium 4.2 MMOL/L (3.5-5.1)
[2021-01-24] MEDS: LEVOTHYROXINE 88 MCG TABLET PO SCH (06:11)
[2021-01-24] MEDS: CLINDAMYCIN INJ 600 MG/50 ML PREMIX IV SCH ×3 (06:11→21:39)
[2021-01-24] MEDS: MAGNESIUM OXIDE 400 MG TABLET PO SCH ×2 (08:17→21:38)
[2021-01-24] MEDS: RIVAROXABAN 20 MG TABLET PO SCH (08:17)
[2021-01-24] MEDS: FUROSEMIDE 40 MG/4 ML VIAL IV SCH ×2 (10:44→21:39)
[2021-01-24] MEDS: cefTRIAXone 1,000 MG in SODIUM CHLORIDE 0.9% 100 ML IV SCH (10:44)
[2021-01-24] MEDS: AZITHROMYCIN INJ 500 MG in SODIUM CHLORIDE 0.9% 250 ML IV SCH (10:45)
[2021-01-24] MEDS: PANTOPRAZOLE 40 MG VIAL IV SCH (14:40)
[2021-01-24] MEDS ORDERED: DEXTROSE 50% 25 GM/50 ML VIAL IV ONE (23:14)
[2021-01-25] MEDS: ALBUTEROL/IPRATROPIUM 3 ML NEB RESP TX SCH ×4 (00:20→19:43)
[2021-01-25 04:18] LABS: ABG Base Excess 3.2 MMOL/L (-2.5-2.5); ABG Oxygen Saturation 98.9 % (95-100); ABG PCO2 44.1 MM HG (35-48); ABG PH 7.421 (7.35-7.45); ABG PO2 155.4 MM HG (80-95); ABG TCO2 29.4 MMOL/L (23-27)
[2021-01-25 04:34] LABS: Basophils % 0.3 % (0.0-0.8); Eosinophils # 0.2 10*3/uL (0.0-0.87); Eosinophils % 1.9 % (0.00-10.9); Hematocrit 32.7 VOL% (42.0-52.0); Immature Granulocytes % 3.8 %; Immature Granulocytes Absolute 0.38 #; Lymphocytes # 1.9 10*3/uL (1.4-4.0); Lymphocytes % 19.2 % (21.2-54.2); Mean Corpuscular HGB Conc 30.6 GM/DL (32-36); Mean Corpuscular Volume 95.9 FL (87-102); Mean Platelet Volume 9.4 FL (9.6-12.0); Monocytes % 5.4 % (1.7-12.7); Neutrophils % 69.4 % (38.7-73.9); Platelet Count 377 T/CUMM (130-400); Red Blood Count 3.41 MC/CUMM (3.8-5.5); Red Cell Distribution Width 18.3 % (9.3-17.3); White Blood Count 10.1 T/CUMM (4-12)
[2021-01-25 04:57] LABS: Eosinophils 2 % (0-10); Hypochromasia 1+; Lymphocytes 17 % (20-55); Microcytosis 1+; Platelet Estimate Adequate; Segmented Neutrophils 78 % (50-85); Total Cells Counted 100
[2021-01-25 05:12] LABS: Albumin 2.1 G/DL (3.4-5.0); Bilirubin,Total 0.4 MG/DL (0.20-1.00); Potassium 4.1 MMOL/L (3.5-5.1); Total Protein 6.9 G/DL (6.4-8.2)
[2021-01-25] MEDS: CLINDAMYCIN INJ 600 MG/50 ML PREMIX IV SCH ×3 (05:45→21:59)
[2021-01-25] MEDS: LEVOTHYROXINE 88 MCG TABLET PO SCH (05:47)
[2021-01-25] MEDS: fentaNYL INJ 1,250 MCG in SODIUM CHLORIDE 0.9% 225 ML IV PRN (05:51)
[2021-01-25] MEDS: FUROSEMIDE 40 MG/4 ML VIAL IV SCH (10:27)
[2021-01-25] MEDS: RIVAROXABAN 20 MG TABLET PO SCH (10:38)
[2021-01-25] MEDS: MAGNESIUM OXIDE 400 MG TABLET PO SCH ×2 (10:38→21:58)
[2021-01-25] MEDS: cefTRIAXone 1,000 MG in SODIUM CHLORIDE 0.9% 100 ML IV SCH (10:39)
[2021-01-25] MEDS: DEXMEDETOMIDINE 200 MCG in SODIUM CHLORIDE 0.9% 48 ML IV PRN ×2 (10:53→21:17)
[2021-01-25] MEDS: AZITHROMYCIN INJ 500 MG in SODIUM CHLORIDE 0.9% 250 ML IV SCH (11:30)
[2021-01-25] MEDS: PANTOPRAZOLE 40 MG VIAL IV SCH (17:42)
[2021-01-25] MEDS: MIDAZOLAM 100 MG in SODIUM CHLORIDE 0.9% 80 ML IV PRN (18:01)
[2021-01-25] MEDS ORDERED: FUROSEMIDE 20 MG/2 ML VIAL IV SCH (21:30)
[2021-01-25] MEDS: QUEtiapine 25 MG TABLET PO SCH (21:58)
[2021-01-26] MEDS: ALBUTEROL/IPRATROPIUM 3 ML NEB RESP TX SCH ×4 (01:09→19:34)
[2021-01-26] MEDS: DEXMEDETOMIDINE 200 MCG in SODIUM CHLORIDE 0.9% 48 ML IV PRN ×4 (01:36→19:19)
[2021-01-26 04:24] LABS: ABG Base Excess 3.4 MMOL/L (-2.5-2.5); ABG HCO3 27.5 MMOL/L (20-26); ABG Oxygen Saturation 99.6 % (95-100); ABG PCO2 39.8 MM HG (35-48); ABG PH 7.449 (7.35-7.45); ABG TCO2 24.6 MMOL/L (23-27)
[2021-01-26 04:56] LABS: Basophils # 0.1 10*3/uL (0.0-0.2); Basophils % 0.8 % (0.0-0.8); Eosinophils # 0.3 10*3/uL (0.0-0.87); Eosinophils % 3.2 % (0.00-10.9); Hematocrit 34.3 VOL% (42.0-52.0); Hemoglobin 10.7 GM/DL (14.0-18.0); Immature Granulocytes % 4.8 %; Immature Granulocytes Absolute 0.46 #; Lymphocytes # 2.3 10*3/uL (1.4-4.0); Lymphocytes % 24.5 % (21.2-54.2); Mean Corpuscular HGB Conc 31.2 GM/DL (32-36); Mean Corpuscular Volume 92.7 FL (87-102); Mean Platelet Volume 9.7 FL (9.6-12.0); Monocytes % 7.2 % (1.7-12.7); Neutrophils % 59.5 % (38.7-73.9); Platelet Count 357 T/CUMM (130-400); Red Cell Distribution Width 17.9 % (9.3-17.3); White Blood Count 9.5 T/CUMM (4-12)
[2021-01-26] MEDS: fentaNYL INJ 1,250 MCG in SODIUM CHLORIDE 0.9% 225 ML IV PRN (05:20)
[2021-01-26 05:31] LABS: Calcium 8.3 MG/DL (8.5-10.1); Osmolality,Calculated 285.4 MOS/KG (273-304); Potassium 4.6 MMOL/L (3.5-5.1)
[2021-01-26] MEDS: CLINDAMYCIN INJ 600 MG/50 ML PREMIX IV SCH ×3 (05:54→22:29)
[2021-01-26] MEDS: LEVOTHYROXINE 88 MCG TABLET PO SCH (05:54)
[2021-01-26 06:48] LABS: Microcytosis Slight; Platelet Estimate Increased
[2021-01-26 06:50] LABS: Polychromasia Slight; Target Cells Few
[2021-01-26] MEDS ORDERED: NOREPINEPHRINE 8 MG in SODIUM CHLORIDE 0.9% 242 ML IV PRN (08:52)
[2021-01-26] MEDS: QUEtiapine 25 MG TABLET PO SCH ×2 (09:33→20:21)
[2021-01-26] MEDS: MAGNESIUM OXIDE 400 MG TABLET PO SCH ×2 (09:33→20:21)
[2021-01-26] MEDS: RIVAROXABAN 20 MG TABLET PO SCH (09:33)
[2021-01-26] MEDS: SPIRONOLACTONE 25 MG TABLET PO SCH ×2 (12:16→20:21)
[2021-01-26] MEDS: cefTRIAXone 1,000 MG in SODIUM CHLORIDE 0.9% 100 ML IV SCH (13:01)
[2021-01-26] MEDS: MIDAZOLAM 100 MG in SODIUM CHLORIDE 0.9% 80 ML IV PRN (14:48)
[2021-01-26] MEDS: PANTOPRAZOLE 40 MG VIAL IV SCH (14:50)
[2021-01-27] MEDS: DEXMEDETOMIDINE 200 MCG in SODIUM CHLORIDE 0.9% 48 ML IV PRN ×5 (00:36→23:37)
[2021-01-27] MEDS: ALBUTEROL/IPRATROPIUM 3 ML NEB RESP TX SCH ×4 (01:35→19:50)
[2021-01-27 04:35] LABS: ABG HCO3 25.3 MMOL/L (20-26); ABG Oxygen Saturation 99.3 % (95-100); ABG PCO2 38.3 MM HG (35-48); ABG PH 7.427 (7.35-7.45); ABG TCO2 22.4 MMOL/L (23-27)
[2021-01-27] MEDS: fentaNYL INJ 1,250 MCG in SODIUM CHLORIDE 0.9% 225 ML IV PRN ×2 (04:44→23:00)
[2021-01-27 05:14] LABS: Basophils % 0.5 % (0.0-0.8); Eosinophils # 0.3 10*3/uL (0.0-0.87); Eosinophils % 3.3 % (0.00-10.9); Hematocrit 35.4 VOL% (42.0-52.0); Hemoglobin 10.7 GM/DL (14.0-18.0); Immature Granulocytes % 5.7 %; Immature Granulocytes Absolute 0.49 #; Lymphocytes # 1.2 10*3/uL (1.4-4.0); Lymphocytes % 14.4 % (21.2-54.2); Mean Corpuscular HGB Conc 30.2 GM/DL (32-36); Mean Corpuscular Volume 95.2 FL (87-102); Mean Platelet Volume 9.8 FL (9.6-12.0); Monocytes % 4.7 % (1.7-12.7); Neutrophils % 71.4 % (38.7-73.9); Platelet Count 321 T/CUMM (130-400); Red Blood Count 3.72 MC/CUMM (3.8-5.5); Red Cell Distribution Width 17.9 % (9.3-17.3); White Blood Count 8.6 T/CUMM (4-12)
[2021-01-27 05:15] LABS: Calcium 8.2 MG/DL (8.5-10.1); Osmolality,Calculated 283.4 MOS/KG (273-304); Potassium 4.9 MMOL/L (3.5-5.1)
[2021-01-27] MEDS: CLINDAMYCIN INJ 600 MG/50 ML PREMIX IV SCH ×3 (06:03→21:00)
[2021-01-27] MEDS: LEVOTHYROXINE 88 MCG TABLET PO SCH (06:03)
[2021-01-27] MEDS: LORazepam 2 MG/1 ML VIAL IV PRN ×2 (06:07→11:46)
[2021-01-27 06:52] LABS: Hypochromasia Slight; Lymphocytes 11 % (20-55); Microcytosis Slight; Nucleated Red Blood Cells 1 (0-5); Platelet Estimate Normal; Segmented Neutrophils 82 % (50-85); Total Cells Counted 100
[2021-01-27] MEDS: MAGNESIUM OXIDE 400 MG TABLET PO SCH ×2 (08:14→20:46)
[2021-01-27] MEDS: QUEtiapine 25 MG TABLET PO SCH ×2 (08:14→20:46)
[2021-01-27] MEDS: RIVAROXABAN 20 MG TABLET PO SCH (08:14)
[2021-01-27] MEDS: MIDAZOLAM 100 MG in SODIUM CHLORIDE 0.9% 80 ML IV PRN (10:27)
[2021-01-27] MEDS: cefTRIAXone 1,000 MG in SODIUM CHLORIDE 0.9% 100 ML IV SCH (11:46)
[2021-01-27] MEDS: PANTOPRAZOLE 40 MG VIAL IV SCH (14:38)
[2021-01-27] MEDS: ACETAMINOPHEN 325 MG TABLET PO PRN (20:46)
[2021-01-28] MEDS: ALBUTEROL/IPRATROPIUM 3 ML NEB RESP TX SCH ×4 (01:10→19:25)
[2021-01-28 04:28] LABS: ABG Base Excess 1.4 MMOL/L (-2.5-2.5); ABG HCO3 25.3 MMOL/L (20-26); ABG Oxygen Saturation 99.2 % (95-100); ABG PCO2 37.7 MM HG (35-48); ABG PH 7.445 (7.35-7.45); ABG PO2 193.8 MM HG (80-95); ABG TCO2 26.5 MMOL/L (23-27); Allen Test Positive; Pt O2 Delivery Device Ventilator
[2021-01-28 05:08] LABS: Basophils # 0.1 10*3/uL (0.0-0.2); Basophils % 0.8 % (0.0-0.8); Eosinophils # 0.2 10*3/uL (0.0-0.87); Eosinophils % 2.1 % (0.00-10.9); Immature Granulocytes % 5.8 %; Immature Granulocytes Absolute 0.61 #; Lymphocytes % 19.3 % (21.2-54.2); Mean Corpuscular HGB Conc 31.4 GM/DL (32-36); Mean Corpuscular Volume 93.3 FL (87-102); Mean Platelet Volume 10.1 FL (9.6-12.0); Monocytes % 7.2 % (1.7-12.7); Neutrophils % 64.8 % (38.7-73.9); Platelet Count 347 T/CUMM (130-400); Red Blood Count 3.75 MC/CUMM (3.8-5.5); Red Cell Distribution Width 17.6 % (9.3-17.3); White Blood Count 10.6 T/CUMM (4-12)
[2021-01-28 05:26] LABS: Band Neutrophils 1 % (0-10); Eosinophils 3 % (0-10); Lymphocytes 15 % (20-55); Segmented Neutrophils 70 % (50-85); Total Cells Counted 100
[2021-01-28 05:27] LABS: Hypochromasia Slight; Microcytosis Slight; Platelet Estimate Adequate
[2021-01-28 05:29] LABS: Calcium 8.1 MG/DL (8.5-10.1); Osmolality,Calculated 279.7 MOS/KG (273-304); Potassium 4.7 MMOL/L (3.5-5.1)
[2021-01-28] MEDS: CLINDAMYCIN INJ 600 MG/50 ML PREMIX IV SCH (05:40)
[2021-01-28] MEDS: LEVOTHYROXINE 88 MCG TABLET PO SCH (05:40)
[2021-01-28] MEDS: RIVAROXABAN 20 MG TABLET PO SCH (08:18)
[2021-01-28] MEDS: QUEtiapine 25 MG TABLET PO SCH ×2 (08:18→20:11)
[2021-01-28] MEDS: MAGNESIUM OXIDE 400 MG TABLET PO SCH ×2 (08:19→20:11)
[2021-01-28] MEDS: ACETAMINOPHEN 325 MG TABLET PO PRN (11:37)
[2021-01-28] MEDS: FUROSEMIDE 40 MG/4 ML VIAL IV SCH ×2 (13:30→17:51)
[2021-01-28] MEDS: PANTOPRAZOLE 40 MG VIAL IV SCH (13:30)
[2021-01-28] MEDS: DEXMEDETOMIDINE 200 MCG in SODIUM CHLORIDE 0.9% 48 ML IV PRN ×2 (18:41→23:38)
[2021-01-28] MEDS: LORazepam 2 MG/1 ML VIAL IV PRN ×2 (20:50→23:27)
[2021-01-29] MEDS: ALBUTEROL/IPRATROPIUM 3 ML NEB RESP TX SCH ×4 (00:10→18:06)
[2021-01-29] MEDS: DEXMEDETOMIDINE 200 MCG in SODIUM CHLORIDE 0.9% 48 ML IV PRN ×3 (03:36→14:57)
[2021-01-29] MEDS: LEVOTHYROXINE 88 MCG TABLET PO SCH (05:49)
[2021-01-29] MEDS ORDERED: HALOPERIDOL 5 MG/ML AMP IV PRN ×2 (05:51→10:21)
[2021-01-29 08:29] LABS: ABG Base Excess 0.8 MMOL/L (-2.5-2.5); ABG HCO3 25.1 MMOL/L (20-26); ABG Oxygen Saturation 99.1 % (95-100); ABG PCO2 21.4 MM HG (35-48); ABG TCO2 18.8 MMOL/L (23-27); Allen Test Positive
[2021-01-29 08:34] LABS: ABG PH 7.599 (7.35-7.45)
[2021-01-29] MEDS: QUEtiapine 25 MG TABLET PO SCH ×2 (09:10→20:21)
[2021-01-29] MEDS: RIVAROXABAN 20 MG TABLET PO SCH (09:10)
[2021-01-29] MEDS: MAGNESIUM OXIDE 400 MG TABLET PO SCH ×2 (09:10→20:21)
[2021-01-29] MEDS: FUROSEMIDE 40 MG/4 ML VIAL IV SCH ×2 (09:13→16:23)
[2021-01-29 10:43] LABS: Calcium 8.8 MG/DL (8.5-10.1); Osmolality,Calculated 279.5 MOS/KG (273-304); Potassium 4.3 MMOL/L (3.5-5.1)
[2021-01-29] MEDS: CLINDAMYCIN INJ 900 MG/50 ML PREMIX IV SCH ×2 (11:14→17:45)
[2021-01-29] MEDS: METOPROLOL TARTRATE 25 MG TABLET PO SCH ×2 (11:14→20:21)
[2021-01-29] MEDS: cefTRIAXone 1,000 MG in SODIUM CHLORIDE 0.9% 100 ML IV SCH (11:14)
[2021-01-29] MEDS: chlordiazePOXIDE 25 MG CAPSULE PO SCH ×2 (15:00→20:21)
[2021-01-29] MEDS: PANTOPRAZOLE 40 MG VIAL IV SCH (15:04)
[2021-01-30] MEDS: ALBUTEROL/IPRATROPIUM 3 ML NEB RESP TX SCH ×4 (02:17→19:47)
[2021-01-30] MEDS: CLINDAMYCIN INJ 900 MG/50 ML PREMIX IV SCH ×3 (03:20→17:41)
[2021-01-30] MEDS: LEVOTHYROXINE 88 MCG TABLET PO SCH (05:34)
[2021-01-30 05:51] LABS: Basophils % 0.4 % (0.0-0.8); Eosinophils # 0.1 10*3/uL (0.0-0.87); Eosinophils % 0.6 % (0.00-10.9); Hematocrit 33.7 VOL% (42.0-52.0); Hemoglobin 10.7 GM/DL (14.0-18.0); Immature Granulocytes Absolute 0.18 #; Lymphocytes # 1.7 10*3/uL (1.4-4.0); Lymphocytes % 18.6 % (21.2-54.2); Mean Corpuscular HGB Conc 31.8 GM/DL (32-36); Mean Corpuscular Volume 91.1 FL (87-102); Mean Platelet Volume 10.6 FL (9.6-12.0); Monocytes % 6.2 % (1.7-12.7); Neutrophils % 72.2 % (38.7-73.9); Platelet Count 293 T/CUMM (130-400); Red Cell Distribution Width 17.4 % (9.3-17.3); White Blood Count 9.1 T/CUMM (4-12)
[2021-01-30 06:12] LABS: Hypochromasia 1+
[2021-01-30 06:13] LABS: Microcytosis 1+; Platelet Estimate Normal
[2021-01-30 06:17] LABS: Calcium 8.5 MG/DL (8.5-10.1); Osmolality,Calculated 288.8 MOS/KG (273-304); Potassium 3.2 MMOL/L (3.5-5.1)
[2021-01-30] MEDS: chlordiazePOXIDE 25 MG CAPSULE PO SCH ×4 (08:04→20:56)
[2021-01-30] MEDS: RIVAROXABAN 20 MG TABLET PO SCH (08:04)
[2021-01-30] MEDS: MAGNESIUM OXIDE 400 MG TABLET PO SCH ×2 (08:04→20:57)
[2021-01-30] MEDS: METOPROLOL TARTRATE 25 MG TABLET PO SCH ×2 (08:05→20:56)
[2021-01-30] MEDS: FUROSEMIDE 40 MG/4 ML VIAL IV SCH ×2 (08:05→15:33)
[2021-01-30] MEDS: POTASSIUM CHLORIDE 20 MEQ TABLET PO PRN (08:05)
[2021-01-30] MEDS: QUEtiapine 100 MG TABLET PO SCH ×2 (08:06→20:57)
[2021-01-30] MEDS: cefTRIAXone 1,000 MG in SODIUM CHLORIDE 0.9% 100 ML IV SCH (11:47)
[2021-01-30] MEDS: PANTOPRAZOLE 40 MG VIAL IV SCH (15:03)
[2021-01-31] MEDS: ALBUTEROL/IPRATROPIUM 3 ML NEB RESP TX SCH ×4 (00:28→19:44)
[2021-01-31] MEDS: CLINDAMYCIN INJ 900 MG/50 ML PREMIX IV SCH (02:02)
[2021-01-31 04:40] LABS: Basophils # 0.1 10*3/uL (0.0-0.2); Basophils % 0.7 % (0.0-0.8); Eosinophils # 0.1 10*3/uL (0.0-0.87); Eosinophils % 1.1 % (0.00-10.9); Hematocrit 31.9 VOL% (42.0-52.0); Hemoglobin 10.1 GM/DL (14.0-18.0); Immature Granulocytes % 1.7 %; Immature Granulocytes Absolute 0.12 #; Lymphocytes # 1.8 10*3/uL (1.4-4.0); Lymphocytes % 24.5 % (21.2-54.2); Mean Corpuscular HGB Conc 31.7 GM/DL (32-36); Mean Corpuscular Volume 91.7 FL (87-102); Mean Platelet Volume 10.5 FL (9.6-12.0); Platelet Count 276 T/CUMM (130-400); Red Blood Count 3.48 MC/CUMM (3.8-5.5); Red Cell Distribution Width 17.3 % (9.3-17.3); White Blood Count 7.1 T/CUMM (4-12)
[2021-01-31 04:52] LABS: Osmolality,Calculated 288.8 MOS/KG (273-304); Potassium 2.8 MMOL/L (3.5-5.1)
[2021-01-31 05:09] LABS: Band Neutrophils 3 % (0-10); Hypochromasia 1+; Lymphocytes 21 % (20-55); Segmented Neutrophils 71 % (50-85); Total Cells Counted 100
[2021-01-31 05:10] LABS: Microcytosis 1+; Platelet Estimate Normal
[2021-01-31] MEDS: POTASSIUM CHLORIDE 20 MEQ TABLET PO PRN (05:41)
[2021-01-31] MEDS: LEVOTHYROXINE 88 MCG TABLET PO SCH (05:47)
[2021-01-31] MEDS: LEVOFLOXACIN INJ 750 MG/150 ML PREMIX IV SCH (08:45)
[2021-01-31] MEDS: POTASSIUM CHLORIDE 20 MEQ TABLET PO SCH ×4 (08:46→20:17)
[2021-01-31] MEDS: FUROSEMIDE 40 MG/4 ML VIAL IV SCH (08:46)
[2021-01-31] MEDS: QUEtiapine 100 MG TABLET PO SCH ×2 (08:46→20:18)
[2021-01-31] MEDS: RIVAROXABAN 20 MG TABLET PO SCH (08:46)
[2021-01-31] MEDS: MAGNESIUM OXIDE 400 MG TABLET PO SCH ×2 (08:46→20:18)
[2021-01-31] MEDS: chlordiazePOXIDE 25 MG CAPSULE PO SCH ×4 (08:47→20:18)
[2021-01-31] MEDS: METOPROLOL TARTRATE 25 MG TABLET PO SCH ×2 (08:48→20:18)
[2021-01-31] MEDS: cefTRIAXone 1,000 MG in SODIUM CHLORIDE 0.9% 100 ML IV SCH (11:30)
[2021-02-01] MEDS: ALBUTEROL/IPRATROPIUM 3 ML NEB RESP TX SCH ×4 (00:11→20:15)
[2021-02-01] MEDS: LORazepam 2 MG/1 ML VIAL IV PRN (02:14)
[2021-02-01 05:06] LABS: Basophils # 0.1 10*3/uL (0.0-0.2); Basophils % 0.7 % (0.0-0.8); Eosinophils # 0.1 10*3/uL (0.0-0.87); Eosinophils % 1.3 % (0.00-10.9); Hematocrit 34.4 VOL% (42.0-52.0); Hemoglobin 10.5 GM/DL (14.0-18.0); Immature Granulocytes Absolute 0.15 #; Lymphocytes # 1.6 10*3/uL (1.4-4.0); Lymphocytes % 21.4 % (21.2-54.2); Mean Corpuscular HGB Conc 30.5 GM/DL (32-36); Mean Corpuscular Volume 92.7 FL (87-102); Mean Platelet Volume 10.3 FL (9.6-12.0); Monocytes % 5.2 % (1.7-12.7); Neutrophils % 69.4 % (38.7-73.9); Platelet Count 295 T/CUMM (130-400); Red Blood Count 3.71 MC/CUMM (3.8-5.5); Red Cell Distribution Width 17.7 % (9.3-17.3); White Blood Count 7.7 T/CUMM (4-12)
[2021-02-01] MEDS: LEVOTHYROXINE 88 MCG TABLET PO SCH (05:32)
[2021-02-01 05:37] LABS: Albumin 2.2 G/DL (3.4-5.0); Calcium 8.2 MG/DL (8.5-10.1); Osmolality,Calculated 293.4 MOS/KG (273-304); Potassium 3.2 MMOL/L (3.5-5.1)
[2021-02-01 05:42] LABS: Hypochromasia 1+; Microcytosis 1+
[2021-02-01 05:43] LABS: Platelet Estimate Normal
[2021-02-01] MEDS: RIVAROXABAN 20 MG TABLET PO SCH (08:02)
[2021-02-01] MEDS: FUROSEMIDE 40 MG TABLET PO SCH (08:02)
[2021-02-01] MEDS: MAGNESIUM OXIDE 400 MG TABLET PO SCH ×2 (08:02→21:33)
[2021-02-01] MEDS: POTASSIUM CHLORIDE 20 MEQ TABLET PO PRN (08:02)
[2021-02-01] MEDS: chlordiazePOXIDE 25 MG CAPSULE PO SCH ×4 (08:02→21:33)
[2021-02-01] MEDS: QUEtiapine 100 MG TABLET PO SCH ×2 (08:02→21:33)
[2021-02-01] MEDS: METOPROLOL TARTRATE 25 MG TABLET PO SCH ×2 (08:02→21:33)
[2021-02-01] MEDS: PANTOPRAZOLE 40 MG TABLET PO SCH (08:02)
[2021-02-01] MEDS: LEVOFLOXACIN INJ 750 MG/150 ML PREMIX IV SCH (08:03)
[2021-02-01] MEDS: POTASSIUM CHLORIDE 20 MEQ TABLET PO SCH ×3 (09:05→16:55)
[2021-02-01] MEDS ORDERED: HALOPERIDOL 5 MG/ML AMP IM PRN (11:00)
[2021-02-01] MEDS: cefTRIAXone 1,000 MG in SODIUM CHLORIDE 0.9% 100 ML IV SCH (12:29)
[2021-02-02] MEDS: ALBUTEROL/IPRATROPIUM 3 ML NEB RESP TX SCH ×4 (00:31→19:50)
[2021-02-02 05:45] LABS: Calcium 8.6 MG/DL (8.5-10.1); Osmolality,Calculated 298.1 MOS/KG (273-304)
[2021-02-02] MEDS: LEVOTHYROXINE 88 MCG TABLET PO SCH (06:36)
[2021-02-02] MEDS: MAGNESIUM OXIDE 400 MG TABLET PO SCH ×2 (09:07→20:32)
[2021-02-02] MEDS: QUEtiapine 100 MG TABLET PO SCH ×2 (09:07→20:32)
[2021-02-02] MEDS: LEVOFLOXACIN 750 MG TABLET PO SCH (09:07)
[2021-02-02] MEDS: METOPROLOL TARTRATE 25 MG TABLET PO SCH ×2 (09:07→20:32)
[2021-02-02] MEDS: RIVAROXABAN 20 MG TABLET PO SCH (09:07)
[2021-02-02] MEDS: PANTOPRAZOLE 40 MG TABLET PO SCH (09:07)
[2021-02-02] MEDS: cefTRIAXone 1,000 MG in SODIUM CHLORIDE 0.9% 100 ML IV SCH (09:08)
[2021-02-02] MEDS: chlordiazePOXIDE 25 MG CAPSULE PO SCH ×4 (09:08→20:31)
[2021-02-02] MEDS: FUROSEMIDE 40 MG TABLET PO SCH (09:08)
[2021-02-03] MEDS: ALBUTEROL/IPRATROPIUM 3 ML NEB RESP TX SCH ×4 (00:20→20:12)
[2021-02-03 05:33] LABS: Calcium 8.6 MG/DL (8.5-10.1); Potassium 3.1 MMOL/L (3.5-5.1)
[2021-02-03] MEDS: LEVOTHYROXINE 88 MCG TABLET PO SCH (06:28)
[2021-02-03] MEDS: chlordiazePOXIDE 25 MG CAPSULE PO SCH ×2 (09:10→21:36)
[2021-02-03] MEDS: cefTRIAXone 1,000 MG in SODIUM CHLORIDE 0.9% 100 ML IV SCH (09:10)
[2021-02-03] MEDS: FUROSEMIDE 40 MG TABLET PO SCH (09:10)
[2021-02-03] MEDS: QUEtiapine 100 MG TABLET PO SCH ×2 (09:10→21:36)
[2021-02-03] MEDS: PANTOPRAZOLE 40 MG TABLET PO SCH (09:11)
[2021-02-03] MEDS: MAGNESIUM OXIDE 400 MG TABLET PO SCH ×2 (09:11→21:36)
[2021-02-03] MEDS: METOPROLOL TARTRATE 25 MG TABLET PO SCH ×2 (09:11→21:36)
[2021-02-03] MEDS: LEVOFLOXACIN 750 MG TABLET PO SCH (09:11)
[2021-02-03] MEDS: POTASSIUM CHLORIDE 20 MEQ TABLET PO PRN ×4 (09:11→16:23)
[2021-02-03] MEDS: RIVAROXABAN 20 MG TABLET PO SCH (09:11)
[2021-02-04] MEDS: ALBUTEROL/IPRATROPIUM 3 ML NEB RESP TX SCH ×4 (00:32→20:43)
[2021-02-04] MEDS: LEVOTHYROXINE 88 MCG TABLET PO SCH (05:39)
[2021-02-04 06:41] LABS: Albumin 2.4 G/DL (3.4-5.0); Bilirubin,Total 1.2 MG/DL (0.20-1.00); Calcium 9.2 MG/DL (8.5-10.1); Osmolality,Calculated 292.4 MOS/KG (273-304); Potassium 3.7 MMOL/L (3.5-5.1); Total Protein 7.6 G/DL (6.4-8.2)
[2021-02-04 07:00] LABS: Basophils # 0.1 10*3/uL (0.0-0.2); Eosinophils # 0.2 10*3/uL (0.0-0.87); Immature Granulocytes % 1.7 %; Immature Granulocytes Absolute 0.12 #; Lymphocytes # 1.8 10*3/uL (1.4-4.0); Lymphocytes % 25.9 % (21.2-54.2); Mean Corpuscular HGB Conc 31.4 GM/DL (32-36); Mean Corpuscular Volume 93.3 FL (87-102); Mean Platelet Volume 9.8 FL (9.6-12.0); Monocytes % 7.2 % (1.7-12.7); Neutrophils % 61.2 % (38.7-73.9); Platelet Count 315 T/CUMM (130-400); White Blood Count 6.9 T/CUMM (4-12)
[2021-02-04 07:01] LABS: Hemoglobin 13.2 GM/DL (14.0-18.0)
[2021-02-04 07:12] LABS: Anisocytosis 1+; Atypical Lymphocytes Few; Band Neutrophils 8 % (0-10); Eosinophils 2 % (0-10); Lymphocytes 26 % (20-55); Macrocytosis Slight; Metamyelocytes 1 %; Nucleated Red Blood Cells 1 (0-5); Platelet Estimate Normal; Segmented Neutrophils 59 % (50-85); Smudge Cells Few; Total Cells Counted 100
[2021-02-04] MEDS: RIVAROXABAN 20 MG TABLET PO SCH (09:15)
[2021-02-04] MEDS: LEVOFLOXACIN 750 MG TABLET PO SCH (09:15)
[2021-02-04] MEDS: chlordiazePOXIDE 25 MG CAPSULE PO SCH ×2 (09:15→21:01)
[2021-02-04] MEDS: PANTOPRAZOLE 40 MG TABLET PO SCH (09:15)
[2021-02-04] MEDS: MAGNESIUM OXIDE 400 MG TABLET PO SCH ×2 (09:15→21:01)
[2021-02-04] MEDS: cefTRIAXone 1,000 MG in SODIUM CHLORIDE 0.9% 100 ML IV SCH (09:15)
[2021-02-04] MEDS: METOPROLOL TARTRATE 25 MG TABLET PO SCH ×2 (11:25→21:01)
[2021-02-04] MEDS ORDERED: LORazepam 2 MG/1 ML VIAL ONE (14:42)
[2021-02-04] MEDS: LORazepam 2 MG/1 ML VIAL IV PRN ×2 (14:52→21:01)
[2021-02-04] MEDS: QUEtiapine 100 MG TABLET PO SCH (21:01)
[2021-02-05] MEDS: ALBUTEROL/IPRATROPIUM 3 ML NEB RESP TX SCH ×4 (01:22→20:08)
[2021-02-05] MEDS: chlordiazePOXIDE 25 MG CAPSULE PO SCH ×4 (04:11→21:31)
[2021-02-05] MEDS: METOPROLOL TARTRATE 25 MG TABLET PO SCH ×4 (04:11→21:31)
[2021-02-05] MEDS: QUEtiapine 100 MG TABLET PO SCH ×3 (04:11→21:32)
[2021-02-05] MEDS: MAGNESIUM OXIDE 400 MG TABLET PO SCH ×4 (04:11→21:32)
[2021-02-05 06:04] LABS: Calcium 9.3 MG/DL (8.5-10.1); Osmolality,Calculated 292.4 MOS/KG (273-304); Potassium 3.5 MMOL/L (3.5-5.1)
[2021-02-05] MEDS: LEVOTHYROXINE 88 MCG TABLET PO SCH (06:25)
[2021-02-05] MEDS: RIVAROXABAN 20 MG TABLET PO SCH (08:09)
[2021-02-05] MEDS: CHOLECALCIFEROL 1,000 UNIT TABLET PO SCH (08:09)
[2021-02-05] MEDS: PANTOPRAZOLE 40 MG TABLET PO SCH (08:10)
[2021-02-05] MEDS: LORazepam 2 MG/1 ML VIAL IV PRN (11:11)
[2021-02-06] MEDS: ALBUTEROL/IPRATROPIUM 3 ML NEB RESP TX SCH ×4 (00:04→20:05)
[2021-02-06 05:49] LABS: Calcium 8.9 MG/DL (8.5-10.1); Osmolality,Calculated 289.7 MOS/KG (273-304); Potassium 3.2 MMOL/L (3.5-5.1)
[2021-02-06] MEDS: LEVOTHYROXINE 88 MCG TABLET PO SCH (05:55)
[2021-02-06] MEDS: FUROSEMIDE 20 MG TABLET PO SCH (08:49)
[2021-02-06] MEDS: CHOLECALCIFEROL 1,000 UNIT TABLET PO SCH (08:49)
[2021-02-06] MEDS: METOPROLOL TARTRATE 25 MG TABLET PO SCH ×2 (08:49→20:51)
[2021-02-06] MEDS: RIVAROXABAN 20 MG TABLET PO SCH (08:49)
[2021-02-06] MEDS: PANTOPRAZOLE 40 MG TABLET PO SCH (08:49)
[2021-02-06] MEDS: MAGNESIUM OXIDE 400 MG TABLET PO SCH ×2 (08:49→20:51)
[2021-02-06] MEDS: chlordiazePOXIDE 10 MG CAPSULE PO SCH ×2 (08:50→20:51)
[2021-02-06] MEDS: LORazepam 2 MG/1 ML VIAL IV PRN (18:51)
[2021-02-06] MEDS: QUEtiapine 100 MG TABLET PO SCH (20:51)
[2021-02-07] MEDS: ALBUTEROL/IPRATROPIUM 3 ML NEB RESP TX SCH ×4 (01:41→18:03)
[2021-02-07] MEDS: LEVOTHYROXINE 88 MCG TABLET PO SCH (05:36)
[2021-02-07 06:56] LABS: Calcium 8.9 MG/DL (8.5-10.1); Osmolality,Calculated 291.6 MOS/KG (273-304)
[2021-02-07] MEDS: METOPROLOL TARTRATE 25 MG TABLET PO SCH ×2 (09:51→20:03)
[2021-02-07] MEDS: chlordiazePOXIDE 10 MG CAPSULE PO SCH (09:52)
[2021-02-07] MEDS: CHOLECALCIFEROL 1,000 UNIT TABLET PO SCH (09:52)
[2021-02-07] MEDS: POTASSIUM CHLORIDE 20 MEQ TABLET PO PRN ×2 (09:52→17:20)
[2021-02-07] MEDS: PANTOPRAZOLE 40 MG TABLET PO SCH (09:52)
[2021-02-07] MEDS: FUROSEMIDE 20 MG TABLET PO SCH (09:52)
[2021-02-07] MEDS: MAGNESIUM OXIDE 400 MG TABLET PO SCH ×2 (09:52→20:04)
[2021-02-07] MEDS: RIVAROXABAN 20 MG TABLET PO SCH (09:52)
[2021-02-07] MEDS: LORazepam 2 MG/1 ML VIAL IV PRN (19:54)
[2021-02-07] MEDS: QUEtiapine 100 MG TABLET PO SCH (20:03)
[2021-02-08] MEDS: ALBUTEROL/IPRATROPIUM 3 ML NEB RESP TX SCH ×4 (01:10→20:12)
[2021-02-08 04:59] LABS: Basophils # 0.1 10*3/uL (0.0-0.2); Eosinophils # 0.3 10*3/uL (0.0-0.87); Eosinophils % 4.8 % (0.00-10.9); Hematocrit 38.2 VOL% (42.0-52.0); Hemoglobin 12.1 GM/DL (14.0-18.0); Immature Granulocytes % 1.4 %; Immature Granulocytes Absolute 0.08 #; Lymphocytes # 2.3 10*3/uL (1.4-4.0); Lymphocytes % 39.7 % (21.2-54.2); Mean Corpuscular HGB Conc 31.7 GM/DL (32-36); Mean Corpuscular Volume 91.2 FL (87-102); Mean Platelet Volume 9.9 FL (9.6-12.0); Monocytes % 9.3 % (1.7-12.7); Neutrophils % 43.8 % (38.7-73.9); Platelet Count 269 T/CUMM (130-400); Red Blood Count 4.19 MC/CUMM (3.8-5.5); Red Cell Distribution Width 17.6 % (9.3-17.3); White Blood Count 5.8 T/CUMM (4-12)
[2021-02-08 05:28] LABS: Calcium 8.7 MG/DL (8.5-10.1); Potassium 3.7 MMOL/L (3.5-5.1)
[2021-02-08 05:42] LABS: Hypochromasia 1+; Microcytosis 1+
[2021-02-08 05:43] LABS: Ovalocytes Slight; Platelet Estimate Normal
[2021-02-08] MEDS: POTASSIUM CHLORIDE 20 MEQ TABLET PO PRN (06:19)
[2021-02-08] MEDS: LEVOTHYROXINE 88 MCG TABLET PO SCH (06:19)
[2021-02-08] MEDS: FUROSEMIDE 20 MG TABLET PO SCH ×2 (09:06→13:07)
[2021-02-08] MEDS: chlordiazePOXIDE 10 MG CAPSULE PO SCH ×2 (09:06→13:07)
[2021-02-08] MEDS: RIVAROXABAN 20 MG TABLET PO SCH ×2 (09:07→13:07)
[2021-02-08] MEDS: PANTOPRAZOLE 40 MG TABLET PO SCH ×2 (09:07→13:07)
[2021-02-08] MEDS: METOPROLOL TARTRATE 25 MG TABLET PO SCH ×3 (09:07→21:27)
[2021-02-08] MEDS: CHOLECALCIFEROL 1,000 UNIT TABLET PO SCH ×2 (09:07→13:07)
[2021-02-08] MEDS: MAGNESIUM OXIDE 400 MG TABLET PO SCH ×3 (09:07→21:27)
[2021-02-08] MEDS: QUEtiapine 100 MG TABLET PO SCH (21:27)
[2021-02-09] MEDS: ALBUTEROL/IPRATROPIUM 3 ML NEB RESP TX SCH ×4 (00:35→20:14)
[2021-02-09] MEDS: LEVOTHYROXINE 88 MCG TABLET PO SCH (06:22)
[2021-02-09] MEDS: RIVAROXABAN 20 MG TABLET PO SCH (08:16)
[2021-02-09] MEDS: CHOLECALCIFEROL 1,000 UNIT TABLET PO SCH (08:16)
[2021-02-09] MEDS: PANTOPRAZOLE 40 MG TABLET PO SCH (08:16)
[2021-02-09] MEDS: METOPROLOL TARTRATE 25 MG TABLET PO SCH ×3 (08:16→20:06)
[2021-02-09] MEDS: MAGNESIUM OXIDE 400 MG TABLET PO SCH ×2 (08:16→20:05)
[2021-02-09] MEDS: FUROSEMIDE 20 MG TABLET PO SCH (08:16)
[2021-02-09] MEDS: chlordiazePOXIDE 10 MG CAPSULE PO SCH (08:16)
[2021-02-09] MEDS: LORazepam 2 MG/1 ML VIAL IV PRN ×2 (14:29→21:49)
[2021-02-09] MEDS: QUEtiapine 25 MG TABLET PO SCH (20:06)
[2021-02-10] MEDS: ALBUTEROL/IPRATROPIUM 3 ML NEB RESP TX SCH (01:10)
[2021-02-10] MEDS: LEVOTHYROXINE 88 MCG TABLET PO SCH ×2 (05:22→05:31)
[2021-02-10] MEDS: LORazepam 2 MG/1 ML VIAL IV PRN ×3 (05:22→20:35)
[2021-02-10 06:07] LABS: Basophils # 0.1 10*3/uL (0.0-0.2); Eosinophils # 0.3 10*3/uL (0.0-0.87); Eosinophils % 5.8 % (0.00-10.9); Hematocrit 39.4 VOL% (42.0-52.0); Hemoglobin 12.3 GM/DL (14.0-18.0); Immature Granulocytes % 2.1 %; Lymphocytes # 1.8 10*3/uL (1.4-4.0); Lymphocytes % 37.4 % (21.2-54.2); Mean Corpuscular HGB Conc 31.2 GM/DL (32-36); Mean Corpuscular Volume 91.4 FL (87-102); Mean Platelet Volume 10.2 FL (9.6-12.0); Monocytes % 9.3 % (1.7-12.7); Neutrophils % 44.4 % (38.7-73.9); Platelet Count 270 T/CUMM (130-400); Red Blood Count 4.31 MC/CUMM (3.8-5.5); Red Cell Distribution Width 17.3 % (9.3-17.3); White Blood Count 4.9 T/CUMM (4-12)
[2021-02-10 06:41] LABS: Calcium 9.1 MG/DL (8.5-10.1); Osmolality,Calculated 278.4 MOS/KG (273-304); Potassium 3.7 MMOL/L (3.5-5.1)
[2021-02-10 07:29] LABS: Acanthocytes Few; Anisocytosis 1+; Burr Cells Few; Macrocytosis Slight; Platelet Estimate Normal
[2021-02-10] MEDS: MAGNESIUM OXIDE 400 MG TABLET PO SCH ×2 (10:55→20:34)
[2021-02-10] MEDS: RIVAROXABAN 20 MG TABLET PO SCH (10:56)
[2021-02-10] MEDS: PANTOPRAZOLE 40 MG TABLET PO SCH (10:56)
[2021-02-10] MEDS: CHOLECALCIFEROL 1,000 UNIT TABLET PO SCH (10:56)
[2021-02-10] MEDS: FUROSEMIDE 20 MG TABLET PO SCH (10:56)
[2021-02-10] MEDS: METOPROLOL TARTRATE 25 MG TABLET PO SCH ×2 (10:57→20:35)
[2021-02-10] MEDS ORDERED: LORazepam 2 MG/1 ML VIAL IM PRN (14:38)
[2021-02-10] MEDS: LACTULOSE 20 GM/30 ML UDCUP PO SCH (20:34)
[2021-02-10] MEDS: QUEtiapine 25 MG TABLET PO SCH (20:34)
[2021-02-11] MEDS: LORazepam 2 MG/1 ML VIAL IV PRN ×2 (03:40→12:37)
[2021-02-11] MEDS: LEVOTHYROXINE 88 MCG TABLET PO SCH ×2 (03:44→06:04)
[2021-02-11 05:43] LABS: Basophils % 0.7 % (0.0-0.8); Eosinophils # 0.1 10*3/uL (0.0-0.87); Eosinophils % 3.3 % (0.00-10.9); Hematocrit 36.8 VOL% (42.0-52.0); Hemoglobin 11.5 GM/DL (14.0-18.0); Immature Granulocytes % 1.6 %; Immature Granulocytes Absolute 0.07 #; Lymphocytes # 1.6 10*3/uL (1.4-4.0); Lymphocytes % 37.7 % (21.2-54.2); Mean Corpuscular HGB Conc 31.3 GM/DL (32-36); Mean Corpuscular Volume 90.6 FL (87-102); Neutrophils % 46.7 % (38.7-73.9); Platelet Count 230 T/CUMM (130-400); Red Blood Count 4.06 MC/CUMM (3.8-5.5); Red Cell Distribution Width 17.3 % (9.3-17.3); White Blood Count 4.3 T/CUMM (4-12)
[2021-02-11 06:04] LABS: Calcium 8.4 MG/DL (8.5-10.1); Osmolality,Calculated 281.3 MOS/KG (273-304); Potassium 3.4 MMOL/L (3.5-5.1)
[2021-02-11 07:37] LABS: Anisocytosis 2+; Macrocytosis 1+; Platelet Estimate Normal
[2021-02-11] MEDS: METOPROLOL TARTRATE 25 MG TABLET PO SCH ×2 (09:16→23:21)
[2021-02-11] MEDS: RIVAROXABAN 20 MG TABLET PO SCH (09:17)
[2021-02-11] MEDS: FUROSEMIDE 20 MG TABLET PO SCH (09:17)
[2021-02-11] MEDS: MAGNESIUM OXIDE 400 MG TABLET PO SCH ×2 (09:17→23:20)
[2021-02-11] MEDS: POTASSIUM CHLORIDE 20 MEQ TABLET PO PRN ×3 (09:17→16:14)
[2021-02-11] MEDS: CHOLECALCIFEROL 1,000 UNIT TABLET PO SCH (09:18)
[2021-02-11] MEDS: PANTOPRAZOLE 40 MG TABLET PO SCH (09:18)
[2021-02-11] MEDS: LACTULOSE 20 GM/30 ML UDCUP PO SCH ×2 (09:18→23:21)
[2021-02-11] MEDS ORDERED: LORazepam 2 MG/1 ML VIAL ONE ×2 (12:32→16:09)
[2021-02-11] MEDS ORDERED: chlordiazePOXIDE 25 MG CAPSULE PO ONE (15:53)
[2021-02-11] MEDS ORDERED: LORazepam 2 MG/1 ML VIAL IV ONE (15:54)
[2021-02-11] MEDS: ZIPRASIDONE 20 MG/1 ML VIAL IM PRN (19:10)
[2021-02-11] MEDS: QUEtiapine 25 MG TABLET PO SCH (23:21)
[2021-02-12] MEDS: LEVOTHYROXINE 88 MCG TABLET PO SCH (07:28)
[2021-02-12] MEDS ORDERED: chlordiazePOXIDE 25 MG CAPSULE PO SCH (09:00)
[2021-02-12] MEDS: LACTULOSE 20 GM/30 ML UDCUP PO SCH ×2 (10:20→20:04)
[2021-02-12] MEDS: FUROSEMIDE 20 MG TABLET PO SCH (10:21)
[2021-02-12] MEDS: METOPROLOL TARTRATE 25 MG TABLET PO SCH ×2 (10:21→20:05)
[2021-02-12] MEDS: RIVAROXABAN 20 MG TABLET PO SCH (10:21)
[2021-02-12] MEDS: PANTOPRAZOLE 40 MG TABLET PO SCH (10:22)
[2021-02-12] MEDS: MAGNESIUM OXIDE 400 MG TABLET PO SCH ×2 (10:22→20:05)
[2021-02-12] MEDS: CHOLECALCIFEROL 1,000 UNIT TABLET PO SCH (10:23)
[2021-02-12] MEDS: QUEtiapine 25 MG TABLET PO SCH ×2 (11:00→20:05)
[2021-02-12] MEDS: ZIPRASIDONE 20 MG/1 ML VIAL IM PRN (19:44)
[2021-02-13] MEDS: LEVOTHYROXINE 88 MCG TABLET PO SCH (06:20)
[2021-02-13] MEDS: ZIPRASIDONE 20 MG/1 ML VIAL IM PRN ×2 (08:26→14:47)
[2021-02-13] MEDS: CHOLECALCIFEROL 1,000 UNIT TABLET PO SCH (08:28)
[2021-02-13] MEDS: PANTOPRAZOLE 40 MG TABLET PO SCH (08:28)
[2021-02-13] MEDS: FUROSEMIDE 20 MG TABLET PO SCH (08:28)
[2021-02-13] MEDS: MAGNESIUM OXIDE 400 MG TABLET PO SCH ×2 (08:29→20:31)
[2021-02-13] MEDS: RIVAROXABAN 20 MG TABLET PO SCH (08:29)
[2021-02-13] MEDS: METOPROLOL TARTRATE 25 MG TABLET PO SCH ×2 (08:29→20:31)
[2021-02-13] MEDS: LACTULOSE 20 GM/30 ML UDCUP PO SCH ×2 (08:30→20:30)
[2021-02-13] MEDS: QUEtiapine 25 MG TABLET PO SCH ×2 (08:30→20:31)
[2021-02-13] MEDS ORDERED: QUEtiapine 25 MG TABLET PO ONE (11:00)
[2021-02-13] MEDS: LORazepam 2 MG/1 ML VIAL IV PRN (20:38)
[2021-02-14] MEDS: ZIPRASIDONE 20 MG/1 ML VIAL IM PRN ×3 (01:22→22:16)
[2021-02-14] MEDS: LEVOTHYROXINE 88 MCG TABLET PO SCH (05:53)
[2021-02-14 07:45] LABS: Calcium 9.3 MG/DL (8.5-10.1); Osmolality,Calculated 279.5 MOS/KG (273-304)
[2021-02-14] MEDS: METOPROLOL TARTRATE 25 MG TABLET PO SCH ×2 (08:58→21:08)
[2021-02-14] MEDS: LACTULOSE 20 GM/30 ML UDCUP PO SCH ×2 (08:58→21:51)
[2021-02-14] MEDS: CHOLECALCIFEROL 1,000 UNIT TABLET PO SCH (08:59)
[2021-02-14] MEDS: PANTOPRAZOLE 40 MG TABLET PO SCH (09:00)
[2021-02-14] MEDS: QUEtiapine 25 MG TABLET PO SCH ×2 (09:00→21:08)
[2021-02-14] MEDS: FUROSEMIDE 20 MG TABLET PO SCH (09:01)
[2021-02-14] MEDS: RIVAROXABAN 20 MG TABLET PO SCH (09:01)
[2021-02-14] MEDS: MAGNESIUM OXIDE 400 MG TABLET PO SCH ×3 (09:42→21:08)
[2021-02-14] MEDS: LORazepam 2 MG/1 ML VIAL IV PRN (13:56)
[2021-02-15] MEDS: LEVOTHYROXINE 88 MCG TABLET PO SCH (06:40)
[2021-02-15] MEDS: LORazepam 2 MG/1 ML VIAL IV PRN ×2 (10:04→20:16)
[2021-02-15] MEDS: LACTULOSE 20 GM/30 ML UDCUP PO SCH ×2 (10:18→21:32)
[2021-02-15] MEDS: PANTOPRAZOLE 40 MG TABLET PO SCH (10:19)
[2021-02-15] MEDS: QUEtiapine 25 MG TABLET PO SCH ×2 (10:20→21:32)
[2021-02-15] MEDS: FUROSEMIDE 20 MG TABLET PO SCH (10:23)
[2021-02-15] MEDS: RIVAROXABAN 20 MG TABLET PO SCH (10:23)
[2021-02-15] MEDS: MAGNESIUM OXIDE 400 MG TABLET PO SCH ×2 (10:23→21:32)
[2021-02-15] MEDS: CHOLECALCIFEROL 1,000 UNIT TABLET PO SCH (10:24)
[2021-02-15] MEDS: METOPROLOL TARTRATE 25 MG TABLET PO SCH ×2 (10:30→21:32)
[2021-02-15] MEDS: ZIPRASIDONE 20 MG/1 ML VIAL IM PRN (14:10)
[2021-02-16] MEDS: ZIPRASIDONE 20 MG/1 ML VIAL IM PRN (01:01)
[2021-02-16 06:19] LABS: Basophils % 0.8 % (0.0-0.8); Eosinophils # 0.2 10*3/uL (0.0-0.87); Eosinophils % 3.4 % (0.00-10.9); Hematocrit 34.4 VOL% (42.0-52.0); Hemoglobin 10.7 GM/DL (14.0-18.0); Immature Granulocytes % 0.8 %; Immature Granulocytes Absolute 0.04 #; Lymphocytes # 1.5 10*3/uL (1.4-4.0); Lymphocytes % 29.2 % (21.2-54.2); Mean Corpuscular HGB Conc 31.1 GM/DL (32-36); Mean Corpuscular Volume 90.5 FL (87-102); Mean Platelet Volume 10.7 FL (9.6-12.0); Monocytes % 9.3 % (1.7-12.7); Neutrophils % 56.5 % (38.7-73.9); Platelet Count 151 T/CUMM (130-400); Red Cell Distribution Width 17.6 % (9.3-17.3)
[2021-02-16 06:34] LABS: Calcium 8.6 MG/DL (8.5-10.1); Osmolality,Calculated 268.4 MOS/KG (273-304); Potassium 3.6 MMOL/L (3.5-5.1)
[2021-02-16 07:17] LABS: Anisocytosis 1+; Hypochromasia 1+; Microcytosis 1+; Platelet Estimate Adequate
[2021-02-16] MEDS: LORazepam 2 MG/1 ML VIAL IV PRN ×2 (11:04→21:11)
[2021-02-16] MEDS: RIVAROXABAN 20 MG TABLET PO SCH (11:17)
[2021-02-16] MEDS: QUEtiapine 25 MG TABLET PO SCH ×2 (11:17→21:13)
[2021-02-16] MEDS: MAGNESIUM OXIDE 400 MG TABLET PO SCH ×2 (11:18→21:13)
[2021-02-16] MEDS: CHOLECALCIFEROL 1,000 UNIT TABLET PO SCH (11:18)
[2021-02-16] MEDS: FUROSEMIDE 20 MG TABLET PO SCH (11:18)
[2021-02-16] MEDS: PANTOPRAZOLE 40 MG TABLET PO SCH (11:18)
[2021-02-16] MEDS: METOPROLOL TARTRATE 25 MG TABLET PO SCH ×2 (11:19→21:13)
[2021-02-16] MEDS: LACTULOSE 20 GM/30 ML UDCUP PO SCH ×2 (11:19→21:27)
[2021-02-16] MEDS: LEVOTHYROXINE 88 MCG TABLET PO SCH (11:19)
[2021-02-17] MEDS: LEVOTHYROXINE 88 MCG TABLET PO SCH (06:28)
[2021-02-17] MEDS: QUEtiapine 25 MG TABLET PO SCH ×2 (10:24→21:12)
[2021-02-17] MEDS: POTASSIUM CHLORIDE 20 MEQ TABLET PO PRN ×2 (10:25→15:44)
[2021-02-17] MEDS: RIVAROXABAN 20 MG TABLET PO SCH (10:25)
[2021-02-17] MEDS: PANTOPRAZOLE 40 MG TABLET PO SCH (10:26)
[2021-02-17] MEDS: FUROSEMIDE 20 MG TABLET PO SCH (10:27)
[2021-02-17] MEDS: CHOLECALCIFEROL 1,000 UNIT TABLET PO SCH (10:27)
[2021-02-17] MEDS: MAGNESIUM OXIDE 400 MG TABLET PO SCH ×2 (10:27→21:12)
[2021-02-17] MEDS: METOPROLOL TARTRATE 25 MG TABLET PO SCH ×2 (10:28→21:12)
[2021-02-17] MEDS: LACTULOSE 20 GM/30 ML UDCUP PO SCH ×2 (10:29→21:17)
[2021-02-17] MEDS: LORazepam 2 MG/1 ML VIAL IV PRN (10:57)
[2021-02-18] MEDS: LORazepam 2 MG/1 ML VIAL IV PRN (01:20)
[2021-02-18 05:00] LABS: Basophils % 0.8 % (0.0-0.8); Eosinophils # 0.4 10*3/uL (0.0-0.87); Eosinophils % 6.9 % (0.00-10.9); Hematocrit 32.9 VOL% (42.0-52.0); Hemoglobin 10.4 GM/DL (14.0-18.0); Immature Granulocytes % 1.4 %; Immature Granulocytes Absolute 0.07 #; Lymphocytes # 1.6 10*3/uL (1.4-4.0); Mean Corpuscular HGB Conc 31.6 GM/DL (32-36); Mean Corpuscular Volume 90.6 FL (87-102); Mean Platelet Volume 10.8 FL (9.6-12.0); Monocytes % 11.7 % (1.7-12.7); Neutrophils % 48.2 % (38.7-73.9); Platelet Count 139 T/CUMM (130-400); Red Blood Count 3.63 MC/CUMM (3.8-5.5); Red Cell Distribution Width 17.2 % (9.3-17.3); White Blood Count 5.1 T/CUMM (4-12)
[2021-02-18 05:26] LABS: Calcium 8.3 MG/DL (8.5-10.1); Hypochromasia Slight; Microcytosis Slight; Osmolality,Calculated 269.2 MOS/KG (273-304); Platelet Estimate Normal; Potassium 4.1 MMOL/L (3.5-5.1)
[2021-02-18] MEDS ORDERED: MAGNESIUM SULF RIDER 4 GM/100 ML PREMIX IV ONE (07:41)
[2021-02-18] MEDS: FUROSEMIDE 20 MG TABLET PO SCH (09:06)
[2021-02-18] MEDS: RIVAROXABAN 20 MG TABLET PO SCH (09:06)
[2021-02-18] MEDS: CHOLECALCIFEROL 1,000 UNIT TABLET PO SCH (09:06)
[2021-02-18] MEDS: LEVOTHYROXINE 88 MCG TABLET PO SCH (09:06)
[2021-02-18] MEDS: QUEtiapine 25 MG TABLET PO SCH ×2 (09:06→20:12)
[2021-02-18] MEDS: LACTULOSE 20 GM/30 ML UDCUP PO SCH ×2 (09:08→21:09)
[2021-02-18] MEDS: PANTOPRAZOLE 40 MG TABLET PO SCH (09:11)
[2021-02-18] MEDS: MAGNESIUM OXIDE 400 MG TABLET PO SCH ×2 (09:14→20:12)
[2021-02-18] MEDS: METOPROLOL TARTRATE 25 MG TABLET PO SCH ×2 (09:14→21:09)
[2021-02-18] MEDS: NICOTINE 21 MG/24 HR PATCH TRANSDERM PRN (15:37)
[2021-02-19] MEDS: NICOTINE 21 MG/24 HR PATCH TRANSDERM PRN (00:30)
[2021-02-19] MEDS: LEVOTHYROXINE 88 MCG TABLET PO SCH (05:49)
[2021-02-19] MEDS ORDERED: THIAMINE 200 MG/2 ML VIAL IV SCH (09:00)
[2021-02-19] MEDS: METOPROLOL TARTRATE 25 MG TABLET PO SCH (09:14)
[2021-02-19] MEDS: QUEtiapine 25 MG TABLET PO SCH (09:15)
[2021-02-19] MEDS: LACTULOSE 20 GM/30 ML UDCUP PO SCH (09:16)
[2021-02-19] MEDS: MAGNESIUM OXIDE 400 MG TABLET PO SCH (09:16)
[2021-02-19] MEDS: CHOLECALCIFEROL 1,000 UNIT TABLET PO SCH (09:16)
[2021-02-19] MEDS: FUROSEMIDE 20 MG TABLET PO SCH (09:16)
[2021-02-19] MEDS: PANTOPRAZOLE 40 MG TABLET PO SCH (09:16)
[2021-02-19 11:52] VITALS: BP 113/61
[2021-02-19] MEDS: RIVAROXABAN 20 MG TABLET PO SCH (13:05)
[2021-02-19] MEDS ORDERED: THIAMINE INJ 300 MG in SODIUM CHLORIDE 0.9% 50 ML IV SCH (17:00)
== END 2021-02-19 15:00 | disposition left against medical advice (07) | DRG 194 ==
LOC: EDUNIT# → EDBD → N.ED 10:14 → SUATTDRO 14:11 → N.4E 14:11 → N.CC 01-21 13:23 → N.ICU 01-28 03:06 → N.5E 02-01 10:04
PROVIDERS: ADMIT Internal Medicine; ATTEND Internal Medicine